=== PATIENT | male | born 1945 | race Caucasian/White ===

== ENCOUNTER 2017-05-19 11:27 | Inpatient (IN) | payer MEDICARE ==
[2017-05-19 11:27] VITALS: BMI 29.9
[2017-05-19] MEDS ORDERED: Sodium Chloride 0.9% 1,000 ML IV STA ×3 (11:44→12:50)
--- NOTE | 2017-05-19 11:52 | ED PDOC ---
HPI: Abdomen Time Seen by Provider: 05/19/17 11:31 Chief Complaint (Nursing): Fever History Per: Patient, Family Onset/Duration Of Symptoms: Days (1) Current Symptoms Are (Timing): Still Present Severity: Moderate Pain Scale Rating Of: 3 Location Of Pain/Discomfort: RLQ, LLQ, Suprapubic Quality Of Discomfort: Cramping Associated Symptoms: Fever, Nausea, Other (Bloody stool). denies: Vomiting, Diarrhea Exacerbating Factors: None Alleviating Factors: None Additional Complaint(s): Crampy lower abd pain assoc with fever and bloody stool since last night. Nausea but no vomiting. No urinary sxs. Past Medical History Vital Signs: Last Vital Signs Temp 98.8 F 05/19/17 13:18 Pulse 94 H 05/19/17 11:29 Resp 19 05/19/17 11:29 BP 139/62 05/19/17 11:29 Pulse Ox 95 05/19/17 11:52 - Medical History PMH: GERD - Family History Family History: States: Unknown Family Hx - Home Medications Home Medications: Ambulatory Orders Medication Instructions Recorded Nadolol [Corgard] 20 mg PO DAILY 05/19/17 Omeprazole [Omeprazole] 20 mg PO DAILY 05/19/17 - Allergies Allergies/Adverse Reactions: Allergies Allergy/AdvReac Type Severity Reaction Status Date / Time No Known Allergies Allergy Verified 06/02/15 11:45 Review of Systems ROS Statement: Except As Marked, All Systems Reviewed And Found Negative Constitutional: Positive for: Fever Gastrointestinal: Positive for: Nausea, Abdominal Pain, Hematochezia Genitourinary Male: Negative for: Dysuria, Frequency Musculoskeletal: Positive for: Back Pain Physical Exam - Reviewed Nursing Documentation Reviewed: Yes Vital Signs Reviewed: Yes - Physical Exam Appears: Positive for: Non-toxic, No Acute Distress Head Exam: Positive for: ATRAUMATIC, NORMAL INSPECTION, NORMOCEPHALIC Skin: Positive for: Normal Color, Warm, DRY Eye Exam: Positive for: EOMI, Normal appearance, PERRL ENT: Positive for: Normal ENT Inspection Neck: Positive for: Normal, Painless ROM Cardiovascular/Chest: Positive for: Regular Rate, Rhythm Respiratory: Positive for: CNT, Normal Breath Sounds Gastrointestinal/Abdominal: Positive for: Bowel Sounds, Soft, Tenderness (Lower quads bilat.) Back: Positive for: Normal Inspection. Negative for: L CVA Tenderness, R CVA Tenderness Extremity: Positive for: Normal ROM Neurologic/Psych: Positive for: Alert, Oriented. Negative for: Motor/Sensory Deficits - Laboratory Results Result Diagrams: 05/19/17 12:30 05/19/17 12:30 - ECG O2 Sat by Pulse Oximetry: 95 Disposition - Clinical Impression Clinical Impression: Sepsis, Cholecystitis - Patient ED Disposition Is Patient to be Admitted: Yes - Disposition Disposition Time: 15:27 Condition: FAIR - Pt Status Changed To: Hospital Disposition Of: Inpatient - Admit Certification Admit to Inpatient:: After my assessment, the patient will require hospitalization for at least two midnights. This is because of the severity of symptoms shown, intensity of services needed, and/or the medical risk in this patient being treated as an outpatient. - POA Present On Arrival: None
[2017-05-19 12:26] LABS: VENOUS BLOOD GAS BASE EXCESS -0.8 mmol/L (0.0-2.0); VENOUS BLOOD GAS PCO2 27 mmHg (40-60); VENOUS BLOOD GAS PO2 37 mm/Hg (30-55)
--- NOTE | 2017-05-19 12:33 | RAD ---
HISTORY: fever COMPARISON: None available. TECHNIQUE: Chest PA and lateral FINDINGS: Examination limited by habitus. LUNGS: Mild pulmonary venous congestion. Please note that chest x-ray has limited sensitivity for the detection of pulmonary masses. PLEURA: No significant pleural effusion identified. No definite pneumothorax . CARDIOVASCULAR: Mild cardiomegaly. OSSEOUS STRUCTURES: Mild degenerative changes of the spine. VISUALIZED UPPER ABDOMEN: Unremarkable. OTHER FINDINGS: None. IMPRESSION: Mild pulmonary venous congestion. Cardiomegaly.
[2017-05-19] MEDS ORDERED: Piperacillin/Tazobact 3.375 GM in Sodium Chloride 0.9% 100 ML IVPB STA (12:50)
[2017-05-19] MEDS ORDERED: Piperacillin/Tazobact 3.375 gm Inj IVPB ONE (13:07)
[2017-05-19 13:41] LABS: ALB/GLOB RATIO 0.8 (1.0-2.1); ALBUMIN 3.3 g/dL (3.5-5.0); ALT/SGPT 80 U/L (21-72); AST/SGOT 108 U/L (17-59); BLOOD UREA NITROGEN 15 mg/dl (9-20); CALCIUM 8.4 mg/dL (8.4-10.2); GFR AFRICAN-AMERICAN > 60; GFR NON-AFRICAN AMERICAN > 60
[2017-05-19 13:45] LABS: INR 1.7 (0.9-1.2); PARTIAL THROMBOPLASTIN TIME 42.5 Seconds (25.6-37.1); PROTHROMBIN TIME 19.5 Seconds (9.8-13.1)
[2017-05-19 13:48] LABS: BASO % 0.1 % (0.0-2.0); EOS % 0.1 % (0.0-4.0); HEMOGLOBIN 13.3 g/dL (12.0-18.0); LYMPH # 0.3 K/uL (1.0-4.3); LYMPH % 4.4 % (20.0-40.0); MEAN CORPUSCULAR HEMOGLOBIN 33.2 pg (27.0-31.0); MEAN CORPUSCULAR HGB CONC 34.9 g/dL (33.0-37.0); MONO # 0.1 K/uL (0.0-0.8); MONO % 1.3 % (0.0-10.0); NEUT # 6.5 K/uL (1.8-7.0); NEUT % 94.1 % (50.0-75.0); NRBC % 0.1 % (0.0-0.0); PLATELET COUNT 31 K/uL (130-400); RBC 4.01 Mil/uL (4.40-5.90); RED CELL DISTRIBUTION WIDTH 14.4 % (11.5-14.5); WHITE BLOOD COUNT 6.9 K/uL (4.8-10.8)
[2017-05-19] MEDS ORDERED: Iohexol 300 100 ML IJ ONE (13:55)
[2017-05-19] MEDS ORDERED: Sodium Chloride 0.9% 50 ML IV ONE (13:55)
[2017-05-19] MEDS ORDERED: Vancomycin 1 g Inj ONE (14:26)
--- NOTE | 2017-05-19 15:17 | CT ---
PROCEDURE: CT Abdomen and Pelvis with contrast HISTORY: lower abd pain, fever, gi bleed COMPARISON: None available. TECHNIQUE: Contrast dose: 95 mL Omnipaque 300 Radiation dose: Total exam DLP = 1056.89 mGy-cm. This CT exam was performed using one or more of the following dose reduction techniques: Automated exposure control, adjustment of the mA and/or kV according to patient size, and/or use of iterative reconstruction technique. FINDINGS: LOWER THORAX: Mild bibasilar atelectasis. No visible pleural effusion or pneumothorax. Small hiatal hernia. Sub cm paraesophageal lymph nodes measuring up to 9 mm in short axis. LIVER: Trace perihepatic ascites. Hepatomegaly. Nodular hepatic contour. Heterogeneous hepatic parenchyma. Numerous too small to characterize hepatic hypodensities measuring up to 7 mm at the hepatic dome. GALLBLADDER AND BILE DUCTS: Gallbladder wall thickening/pericholecystic edema. Punctate calcified gallstone. PANCREAS: Unremarkable. SPLEEN: Splenomegaly. ADRENALS: Unremarkable. KIDNEYS AND URETERS: The kidneys enhance symmetrically. No hydronephrosis or obstructing calculus identified. VASCULATURE: Numerous varices, left mid to lower abdomen. No aortic aneurysm. BOWEL: Stomach is nondistended. Lack of oral contrast limits evaluation for bowel pathology. Bowel loops appear within normal limits of caliber without evidence of obstruction. Diverticulosis without CT evidence of acute diverticulitis. APPENDIX: The appendix appears within normal limits of caliber. No secondary signs of acute appendicitis. PERITONEUM: No significant free fluid. No definite free air. LYMPH NODES: No bulky adenopathy identified. BLADDER: Under distended urinary bladder appears otherwise grossly unremarkable. REPRODUCTIVE: Heterogeneous enlarged prostate gland measures approximately 5.6 x 6.9 cm. BONES: Degenerative changes. Osseous demineralization. Suspect Schmorl's nodes involving the inferior endplate of L4. Vacuum disc phenomenon at L5-S1. OTHER FINDINGS: Small fat containing umbilical hernia. IMPRESSION: Cirrhotic appearing liver; nodular hepatic contour. Heterogeneous hepatic parenchyma. Numerous too small to characterize hepatic hypodensities measuring up to 7 mm, hepatic dome. Trace perihepatic ascites. Gallbladder wall thickening/pericholecystic edema. Punctate calcified gallstone. Splenomegaly. Numerous varices in the left mid to lower abdomen. Diverticulosis without CT evidence of acute diverticulitis. Heterogeneous enlarged prostate gland. Recommend correlation with PSA. Additional findings as above.
[2017-05-19 15:28] LABS: BASO % 0.2 % (0.0-2.0); EOS % 0.1 % (0.0-4.0); HEMOGLOBIN 11.7 g/dL (12.0-18.0); LYMPH # 0.3 K/uL (1.0-4.3); LYMPH % 5.6 % (20.0-40.0); MEAN CELL VOLUME 94.5 fl (80.0-94.0); MEAN CORPUSCULAR HEMOGLOBIN 33.6 pg (27.0-31.0); MEAN CORPUSCULAR HGB CONC 35.5 g/dL (33.0-37.0); MEAN PLATELET VOLUME 9.9 fl (7.2-11.7); MONO # 0.2 K/uL (0.0-0.8); MONO % 3.7 % (0.0-10.0); NEUT # 5.4 K/uL (1.8-7.0); NEUT % 90.4 % (50.0-75.0); NRBC % 0.2 % (0.0-0.0); RBC 3.49 Mil/uL (4.40-5.90); RED CELL DISTRIBUTION WIDTH 13.9 % (11.5-14.5)
[2017-05-19 15:35] LABS: BANDS 6 % (0-2); EOSINOPHIL 1 % (0-7); LYMPHOCYTE 5 % (20-50); MONOCYTE 2 % (0-10); NEUTROPHIL 86 % (42-75); TOTAL CELLS COUNTED 100
[2017-05-19 15:36] LABS: ANISOCYTOSIS SLIGHT; PLATELET ESTIMATE MARKEDLY DECREASED (NORMAL)
[2017-05-19 15:37] LABS: LARGE PLATELETS PRESENT; SMUDGE CELLS PRESENT; TEARDROP CELLS SLIGHT
[2017-05-19 15:39] LABS: VENOUS BLOOD GAS BASE EXCESS -4.4 mmol/L (0.0-2.0); VENOUS BLOOD GAS PCO2 24 mmHg (40-60); VENOUS BLOOD GAS PO2 68 mm/Hg (30-55); VENOUS BLOOD PH 7.47 (7.32-7.43)
[2017-05-19] MEDS ORDERED: metroNIDAZOLE 500mg/100ml NS 100 ML IVPB SCH (18:15)
--- NOTE | 2017-05-19 18:24 | CP.CCUPN ---
CCU Subjective - Physician Review Subjective (Free Text): Consult for ICU admission and management: Discussed with ER MD: 72M with h/o HTN , low platelets, admitted for lower abdominal pain and rectal bleeding, found to have cholecystitis with non-obstructing cholelithiasis, low platelets 31K down to 14K after IVF hydration, elevated lactate levels, and fever to 102.5F. CTAP also revealed diverticulosis. Patient denies any n/v, chest discomfort, sob, sweats, palpitations, focal weakness, distention, diarrhea, or dysuria. In ER, recd 2 liters NSS, given empiric abx coverage with Zosyn/ Vanco, and 2 pack units of platelets have been ordered. ROS: as above, no other pertinent negs or positives on 10+ system review. Allergies: NKDA Home Meds: Corgard, Omeprazole Other PMSFH: denies tobacco or ETOH use, no known family history of early deaths from cardiac disease, [place]. All other nursing and physician documentation reviewed and no further pertinent info noted relevant to current problems. CCU Objective - Vital Signs / Intake & Output Vital Signs (Last 4 hours): Vital Signs Pulse Ox 05/19/17 15:27 95 - Physical Exam Head: Positive for: Normocephalic Pupils: Positive for: PERRL Extroacular Muscles: Positive for: EOMI Conjunctiva: Positive for: Normal Ears: Positive for: Normal Mouth: Positive for: Moist Mucous Membranes Pharnyx: Negative for: ERYTHEMA, EXUDATE Neck: Positive for: Normal Range of Motion, Meningeal Signs. Negative for: JVD Respiratory/Chest: Positive for: Clear to Auscultation. Negative for: Accessory Muscle Use, Wheezes Cardiovascular: Positive for: Regular Rate and Rhythm, Normal S1, S2. Negative for: Murmurs, Rub Abdomen: Positive for: Tenderness, Distention, Normal Bowel Sounds. Negative for: Peritoneal Signs, Rebound, Guarding Lower Extremity: Positive for: NORMAL PULSES. Negative for: CALF TENDERNESS, Cyanosis Neurological: Positive for: GCS=15, CN II-XII Intact, Motor Func Grossly Intact Skin: Positive for: Warm. Negative for: Rashes Psychiatric: Positive for: Alert, Oriented x 3 - Medications Active Medications: Active Medications Generic Name Dose Route Start Last Admin Trade Name Freq PRN Reason Stop Dose Admin Acetaminophen 650 mg 05/19/17 18:19 Tylenol 325mg Tab PO Q6 PRN Fever >100.4 F Sodium Chloride 1,000 mls @ 100 mls/hr 05/19/17 11:44 05/19/17 12:01 Sodium Chloride 0.9% IV 05/19/17 21:43 100 mls/hr .Q10H STA Administration Ciprofloxacin 400 mg in 200 mls @ 200 mls/hr 05/19/17 18:13 Cipro 400mg/200ml Dsw IVPB Q12 BETH Metronidazole 100 mls @ 100 mls/hr 05/19/17 18:15 Flagyl 500mg/100ml Ns IVPB Q8 BETH Piperacillin Sod/Tazobactam 100 mls @ 100 mls/hr 05/19/17 22:00 Sod 3.375 gm/ Sodium Chloride IVPB Q6 BETH Pantoprazole Sodium 40 mg 05/19/17 18:16 Protonix Inj IVP DAILY BETH - Patient Studies Lab Studies: Lab Studies 05/19/17 05/19/17 Range/Units 17:00 15:30 Fibrinogen 202 (200-400) mg/dl pO2 68 H (30-55) mm/Hg VBG pH 7.47 H (7.32-7.43) VBG pCO2 24 L (40-60) mmHg VBG HCO3 21.4 mmol/L VBG Total CO2 18.2 L (22-28) mmol/L VBG O2 Sat (Calc) 99.3 H (40-65) % VBG Base Excess -4.4 L (0.0-2.0) mmol/L VBG Potassium 3.7 (3.6-5.2) mmol/L Sodium 134.0 (132-148) mmol/L Chloride 106.0 (98-107) mmol/L Glucose 107 (75-110) mg/dL Lactate 3.1 H (0.7-2.1) mmol/L FiO2 21.0 % Venous Blood Potassium 3.7 (3.6-5.2) mmol/L Laboratory Results - last 24 hr 05/19/17 05/19/17 15:30 17:00 Fibrinogen 202 pO2 68 H VBG pH 7.47 H VBG pCO2 24 L VBG HCO3 21.4 VBG Total CO2 18.2 L VBG O2 Sat (Calc) 99.3 H VBG Base Excess -4.4 L VBG Potassium 3.7 Sodium 134.0 Chloride 106.0 Glucose 107 Lactate 3.1 H FiO2 21.0 Venous Blood Potassium 3.7 Radiology Interpretations (Free Text): (my interp) no gross consolidation, minimal pulm vascular congestive interstitial changes. EKG/Cardiology Interpretations (Free Text): (my interp) sinus 97/min, CRBBB. Review of Systems - Review of Systems Review of Systems: See As Above. Critical Care Progress Note - Extremities/Vascular Does the Patient have a Central Venous Catheter?: No Does the Patient need a Central Venous Catheter?: No Does the Patient have a Mcnally Catheter?: No Does the Patient need a Mcnally Catheter?: No - Prophylaxis GI Prophylaxis GI: PPI - Prophylaxis DVT Prophylaxis DVT: SCDs Assessment/Plan - Assessment and Plan (Free Text) Assessment: MAJOR PROBLEMS: 1. Acute Qian with non-obstructing Cholelithiasis 2. Severe Sepsis 2 #1 3. LGI bleed 4. Acute on Chronic Thrombocytopenia, r/o Sepsis induced v. DIC v. other autoimmune destruction 5. Hepatosplenomegaly, 2 Portal HTN ?? 6. Acute on Chronic Disease Anemia 7. Coagulopathy, etiology 2 hepatic insuff, r/o DIC 8. HTN by history Plan: PLAN: 1. Dutta-cultures, empiric abx coverage started, consider broadening with double Gram neg coverage. 2. IVF hydration, check ECHO 3. Repeat serial Lactates till normalized. 4. Platelet transfusion, check peripheral smear, serial Fib levels. 5. Vit K, FFP if Hgb drops further. 6. GI eval for appropriateness of endoscopy. 7. Gen Surg / IR eval.
[2017-05-19] MEDS: Ciprofloxacin 400mg/200ml D5W 400 MG/200 ML BAG IVPB SCH (18:28)
[2017-05-19 19:37] LABS: VENOUS BLOOD GAS BASE EXCESS -7.1 mmol/L (0.0-2.0); VENOUS BLOOD GAS PCO2 25 mmHg (40-60); VENOUS BLOOD GAS PO2 68 mm/Hg (30-55); VENOUS BLOOD PH 7.41 (7.32-7.43)
[2017-05-19] MEDS ORDERED: Phytonadione 10 mg/ml Inj (Adult) IVPB ONE (19:38)
[2017-05-19] MEDS ORDERED: metroNIDAZOLE 500mg/100ml NS 100 ML IVPB ONE (19:55)
--- NOTE | 2017-05-19 20:09 | CP.PCM.CON ---
History of Present Illness - History of Present Illness History of Present Illness: 72 year old male with a history of liver cirrhosis, chronic thrombocytopenia s/ p bone marrow biopsy by Dr. Hammond, admitted with pelvic pain and rectal bleeding, found to have acute cholecystitis. The patient reports to increasing abdominal pain and subjective fevers which brought him to the ER. In the ER he was found to have a plt count of 31,000 which has nadired at 14,000 after IVF bolus. 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 A CT A/P revealed cirrhotic appearing liver, splenomegaly, and varices. Peripheral smear: Toxic granulation of WBC, mild anisopoikilocytosis, no increase in schistocytes, giant platelets, decreased platelet count, no platelet clumping. Past medical history: liver cirrhosis Past surgical history: None Family history: Denies hematologic and oncologic problems Social history: Former alcohol abuse. Allergies: NKA Review of systems: All remaining review of systems including HEENT, cardiovascular, respiratory, gastrointestinal, genitourinary, musculoskeletal, dermatologic, neurologic, and psychiatric are negative unless mentioned in the HPI. Past Patient History - Infectious Disease Hx of Infectious Diseases: None - Past Social History Smoking Status: Never Smoked - CARDIAC Hx Hypertension: Yes - PSYCHIATRIC Hx Substance Use: No Meds Allergies/Adverse Reactions: Allergies Allergy/AdvReac Type Severity Reaction Status Date / Time No Known Allergies Allergy Verified 06/02/15 11:45 - Medications Medications: Current Medications Acetaminophen (Tylenol 325mg Tab) 650 mg PO Q6 PRN PRN Reason: Fever >100.4 F Sodium Chloride (Sodium Chloride 0.9%) 1,000 mls @ 100 mls/hr IV .Q10H STA Stop: 05/19/17 21:43 Last Admin: 05/19/17 12:01 Dose: 100 mls/hr Ciprofloxacin (Cipro 400mg/200ml Dsw) 400 mg in 200 mls @ 200 mls/hr IVPB Q12 BETH Last Admin: 05/19/17 18:28 Dose: 200 mls/hr Metronidazole (Flagyl 500mg/100ml Ns) 100 mls @ 100 mls/hr IVPB Q8 BETH Last Admin: 05/19/17 19:56 Dose: 100 mls/hr Piperacillin Sod/Tazobactam Sod (Zosyn 3.375 Gm Iv Premix) 3.375 gm in 50 mls @ 50 mls/hr IVPB Q6 [facility] Phytonadione 20 mg/ Sodium (Chloride) 52 mls @ 104 mls/hr IV ONCE ONE Stop: 05/19/17 20:59 Pantoprazole Sodium (Protonix Inj) 40 mg IVP DAILY [facility] Last Admin: 05/19/17 18:29 Dose: 40 mg Physical Exam - Head Exam Head Exam: ATRAUMATIC - Eye Exam Eye Exam: Normal appearance - ENT Exam ENT Exam: Mucous Membranes Dry - Respiratory Exam Respiratory Exam: NORMAL BREATHING PATTERN - Cardiovascular Exam Cardiovascular Exam: +S1, +S2 - GI/Abdominal Exam GI & Abdominal Exam: Normal Bowel Sounds - Extremities Exam Extremities exam: Positive for: normal inspection - Neurological Exam Neurological exam: Oriented x3 - Psychiatric Exam Psychiatric exam: Normal Affect, Normal Mood - Skin Skin Exam: Warm Results - Vital Signs Recent Vital Signs: Last Vital Signs Temp 98.3 F 05/19/17 18:38 Pulse 77 05/19/17 18:38 Resp 22 05/19/17 18:38 BP 89/49 L 05/19/17 18:38 Pulse Ox 99 05/19/17 18:38 - Labs Result Diagrams: 05/19/17 15:22 05/19/17 12:30 Labs: Laboratory Results - last 24 hr 05/19/17 05/19/17 05/19/17 15:30 17:00 17:50 Fibrinogen 202 pO2 68 H VBG pH 7.47 H VBG pCO2 24 L VBG HCO3 21.4 VBG Total CO2 18.2 L VBG O2 Sat (Calc) 99.3 H VBG Base Excess -4.4 L VBG Potassium 3.7 Sodium 134.0 Chloride 106.0 Glucose 107 Lactate 3.1 H FiO2 21.0 Venous Blood Potassium 3.7 Blood Type O POSITIVE Antibody Screen Negative BBK History Checked No verified bt 05/19/17 19:30 Fibrinogen pO2 68 H VBG pH 7.41 VBG pCO2 25 L VBG HCO3 19.3 VBG Total CO2 16.6 L VBG O2 Sat (Calc) 99.0 H VBG Base Excess -7.1 L VBG Potassium 3.7 Sodium 134.0 Chloride 108.0 H Glucose 135 H Lactate 3.7 H FiO2 21.0 Venous Blood Potassium 3.7 Blood Type Antibody Screen BBK History Checked Assessment & Plan (1) Thrombocytopenia Assessment and Plan: liver cirrhosis causing thrombopoeitin dysregulation, portal hypertension with splenic sequestration agree with transfusion support no evidence of microangiopathic hemolysis by peripheral smear rule out DIC but fibrinogen may be low from liver cirrhosis. Status: Acute (2) Coagulopathy Assessment and Plan: secondary to liver cirrhosis may have nutritional component; s/p vit k and ffp rule out DIC Status: Acute (3) Anemia Assessment and Plan: will check ferritin, retic count, b12, folate, fractionate bilirubin to further characterize rectal bleeding ?varices Thank you for this interesting consult. Status: Acute
--- NOTE | 2017-05-19 20:20 | CP.PCM.CON ---
History of Present Illness - History of Present Illness History of Present Illness: Surgery: Dr. Ring CC: Abd pain HPI: 72M w. pmh of HTN and chronic thrombocytopenia presents to ED w. acute onset abd pain. Pain began at 4AM. Pain is constant, diffuse, and described as stabbing. Pt has never had pain like this before. Pt denies nausea and vomiting. Pt states that he has had diarrhea for 2 days which has been bloody. Blood is noted in the bowl and when he wipes. In ED pt was found to be septic w. gallbladder as likely source. Pt denies BRYANT, but reports feeling dizzy/ blurred vision, he reports fever and chills, no CP/palpitations, no SOB/cough, no hematuria/dysuria. PMH: HTN, thrombocytopenia PSH: none Meds: MAR reviewed NKDA Social: No ETOH/tobacco/drugs Fhx: Non-contributory Review of Systems - Review of Systems All systems: reviewed and no additional remarkable complaints except (HPI) Past Patient History - Infectious Disease Hx of Infectious Diseases: None - Past Social History Smoking Status: Never Smoked - CARDIAC Hx Hypertension: Yes - HEMATOLOGICAL/ONCOLOGICAL Hx Blood Disorders: Yes - PSYCHIATRIC Hx Substance Use: No Meds Allergies/Adverse Reactions: Allergies Allergy/AdvReac Type Severity Reaction Status Date / Time No Known Allergies Allergy Verified 06/02/15 11:45 - Medications Medications: Current Medications Acetaminophen (Tylenol 325mg Tab) 650 mg PO Q6 PRN PRN Reason: Fever >100.4 F Sodium Chloride (Sodium Chloride 0.9%) 1,000 mls @ 100 mls/hr IV .Q10H STA Stop: 05/19/17 21:43 Last Admin: 05/19/17 12:01 Dose: 100 mls/hr Ciprofloxacin (Cipro 400mg/200ml Dsw) 400 mg in 200 mls @ 200 mls/hr IVPB Q12 BETH Last Admin: 05/19/17 18:28 Dose: 200 mls/hr Metronidazole (Flagyl 500mg/100ml Ns) 100 mls @ 100 mls/hr IVPB Q8 [facility] Last Admin: 05/19/17 19:56 Dose: 100 mls/hr Piperacillin Sod/Tazobactam Sod (Zosyn 3.375 Gm Iv Premix) 3.375 gm in 50 mls @ 50 mls/hr IVPB Q6 [facility] Phytonadione 20 mg/ Sodium (Chloride) 52 mls @ 104 mls/hr IV ONCE ONE Stop: 05/19/17 20:59 Pantoprazole Sodium (Protonix Inj) 40 mg IVP DAILY [facility] Last Admin: 05/19/17 18:29 Dose: 40 mg Physical Exam - Constitutional Appears: Non-toxic, No Acute Distress - Head Exam Head Exam: ATRAUMATIC, NORMOCEPHALIC - Eye Exam Eye Exam: EOMI, Scleral icterus - ENT Exam ENT Exam: Mucous Membranes Moist, Normal External Ear Exam - Neck Exam Neck exam: Positive for: Full Rom - Respiratory Exam Respiratory Exam: NORMAL BREATHING PATTERN. absent: Accessory Muscle Use, Respiratory Distress - GI/Abdominal Exam GI & Abdominal Exam: Soft, Tenderness (R mid abdomen). absent: Distended, Firm , Guarding, Rebound, Rigid - Extremities Exam Extremities exam: Negative for: calf tenderness, pedal edema - Neurological Exam Neurological exam: Alert, Oriented x3 Results - Vital Signs Recent Vital Signs: Last Vital Signs Temp 98.3 F 05/19/17 20:03 Pulse 77 05/19/17 20:03 Resp 22 05/19/17 20:03 BP 89/49 L 05/19/17 20:03 Pulse Ox 99 05/19/17 18:38 - Labs Result Diagrams: 05/19/17 15:22 05/19/17 12:30 Labs: Laboratory Results - last 24 hr 05/19/17 05/19/17 05/19/17 15:30 17:00 17:50 Fibrinogen 202 pO2 68 H VBG pH 7.47 H VBG pCO2 24 L VBG HCO3 21.4 VBG Total CO2 18.2 L VBG O2 Sat (Calc) 99.3 H VBG Base Excess -4.4 L VBG Potassium 3.7 Sodium 134.0 Chloride 106.0 Glucose 107 Lactate 3.1 H FiO2 21.0 Venous Blood Potassium 3.7 Blood Type O POSITIVE Antibody Screen Negative BBK History Checked No verified bt 05/19/17 19:30 Fibrinogen pO2 68 H VBG pH 7.41 VBG pCO2 25 L VBG HCO3 19.3 VBG Total CO2 16.6 L VBG O2 Sat (Calc) 99.0 H VBG Base Excess -7.1 L VBG Potassium 3.7 Sodium 134.0 Chloride 108.0 H Glucose 135 H Lactate 3.7 H FiO2 21.0 Venous Blood Potassium 3.7 Blood Type Antibody Screen BBK History Checked - Imaging and Cardiology CT scan - abdomen Status: Image reviewed by me, Report reviewed by me Assessment & Plan - Assessment and Plan (Free Text) Assessment: 72M w. sepsis 2/2 cholecystitis -f/u U/S results -NPO w. ice chips -IVF -abx -pain meds -monitor H/H and plts, transfuse PRN -medically optimize pt for possible surgery -if condition worsens, recommend IR for cholecystostomy tube -d/w attending Zemaitis PGY3
[2017-05-19] MEDS ORDERED: HYDROmorphone 0.5 mg/0.5 ml ISec IVP PRN (20:39)
[2017-05-19] MEDS ORDERED: Sodium Chloride 0.9% 1,000 ML IV SCH (21:00)
[2017-05-19 21:15] LABS: FDP INTERPRETATION NEGATIVE (NEGATIVE)
[2017-05-19] MEDS: Piperacill/Tazo 3.375gm in Dex 3.375 GM/50 ML BAG IVPB SCH (22:24)
[2017-05-20] MEDS: Piperacill/Tazo 3.375gm in Dex 3.375 GM/50 ML BAG IVPB SCH ×4 (03:05→21:17)
[2017-05-20] MEDS: metroNIDAZOLE 500mg/100ml NS 100 ML IVPB SCH ×3 (03:06→19:25)
[2017-05-20] MEDS ORDERED: metroNIDAZOLE 500mg/100ml NS 100 ML IVPB SCH (04:00)
[2017-05-20 05:47] LABS: BASO % 0.2 % (0.0-2.0); EOS % 0.1 % (0.0-4.0); HEMOGLOBIN 12.3 g/dL (12.0-18.0); LYMPH # 0.3 K/uL (1.0-4.3); LYMPH % 4.8 % (20.0-40.0); MEAN CELL VOLUME 96.1 fl (80.0-94.0); MEAN CORPUSCULAR HEMOGLOBIN 33.1 pg (27.0-31.0); MEAN CORPUSCULAR HGB CONC 34.4 g/dL (33.0-37.0); MEAN PLATELET VOLUME 10.2 fl (7.2-11.7); MONO # 0.2 K/uL (0.0-0.8); MONO % 3.5 % (0.0-10.0); NEUT # 5.7 K/uL (1.8-7.0); NEUT % 91.4 % (50.0-75.0); RBC 3.72 Mil/uL (4.40-5.90); RED CELL DISTRIBUTION WIDTH 14.5 % (11.5-14.5); WHITE BLOOD COUNT 6.3 K/uL (4.8-10.8)
[2017-05-20 05:52] LABS: PLATELET COUNT 25 K/uL (130-400)
[2017-05-20 05:53] LABS: ALB/GLOB RATIO 0.8 (1.0-2.1); ALBUMIN 3.1 g/dL (3.5-5.0); ALT/SGPT 65 U/L (21-72); AST/SGOT 76 U/L (17-59); BLOOD UREA NITROGEN 18 mg/dl (9-20); CALCIUM 7.4 mg/dL (8.4-10.2); GFR AFRICAN-AMERICAN > 60; GFR NON-AFRICAN AMERICAN > 60
[2017-05-20 06:08] LABS: INR 1.9 (0.9-1.2); PARTIAL THROMBOPLASTIN TIME 42.8 Seconds (25.6-37.1); PROTHROMBIN TIME 22.1 Seconds (9.8-13.1)
--- NOTE | 2017-05-20 07:58 | CARD ---
APPROVED REPORT EKG Measurement Heart [id number] <Conclusion> Normal sinus rhythm Right bundle branch block Possible Lateral infarct, age undetermined Abnormal ECG
[2017-05-20] MEDS ORDERED: Pneumococcal 23-Valent Vaccine IM ONE (08:00)
[2017-05-20] MEDS: Sodium Chloride 0.9% 1,000 ML IV SCH ×3 (08:15→23:33)
--- NOTE | 2017-05-20 08:30 | CP.PCM.PN ---
Subjective - Date & Time of Evaluation Date of Evaluation: 05/20/17 Time of Evaluation: 08:17 - Subjective Subjective: Surgery for Dr. Ring Pt s&adrian COHEN. Denies F/C/N/V/D/CP/SOB. Pain controlled. Objective - Vital Signs/Intake and Output Vital Signs (last 24 hours): Temp Pulse Resp BP Pulse Ox 100.7 F H 88 31 H 111/48 L 92 L 05/20/17 08:06 05/20/17 08:00 05/20/17 08:00 05/20/17 08:00 05/20/17 08:00 Intake and Output: 05/20/17 05/20/17 06:59 18:59 Intake Total 2173 Output Total 300 Balance 1873 - Medications Medications: Current Medications Acetaminophen (Tylenol 325mg Tab) 650 mg PO Q6 PRN PRN Reason: Fever >100.4 F Last Admin: 05/20/17 08:06 Dose: 650 mg Hydromorphone HCl (Dilaudid) 0.5 mg IVP Q4 PRN PRN Reason: Pain, moderate (4-7) Last Admin: 05/20/17 08:06 Dose: 0.5 mg Ciprofloxacin (Cipro 400mg/200ml Dsw) 400 mg in 200 mls @ 200 mls/hr IVPB Q12 [facility] Last Admin: 05/19/17 18:28 Dose: 200 mls/hr Piperacillin Sod/Tazobactam Sod (Zosyn 3.375 Gm Iv Premix) 3.375 gm in 50 mls @ 50 mls/hr IVPB Q6 [facility] Last Admin: 05/20/17 03:05 Dose: 50 mls/hr Metronidazole (Flagyl 500mg/100ml Ns) 100 mls @ 100 mls/hr IVPB Q8@0400,1200, 2000 [facility] Last Admin: 05/20/17 03:06 Dose: 100 mls/hr Sodium Chloride (Sodium Chloride 0.9%) 1,000 mls @ 125 mls/hr IV .Q8H [facility] Stop: 05/20/17 20:46 Ondansetron HCl (Zofran Inj) 4 mg IVP Q4 PRN PRN Reason: Nausea/Vomiting Pantoprazole Sodium (Protonix Inj) 40 mg IVP DAILY [facility] Last Admin: 05/19/17 18:29 Dose: 40 mg - Labs Labs: 05/20/17 04:30 05/20/17 04:30 PT 22.1 Seconds (9.8-13.1) H 05/20/17 04:30 INR 1.9 (0.9-1.2) H 05/20/17 04:30 APTT 42.8 Seconds (25.6-37.1) H 05/20/17 04:30 - Constitutional Appears: No Acute Distress - Head Exam Head Exam: ATRAUMATIC, NORMAL INSPECTION, NORMOCEPHALIC - Eye Exam Eye Exam: EOMI, Normal appearance, PERRL Pupil Exam: NORMAL ACCOMODATION, PERRL - ENT Exam ENT Exam: Mucous Membranes Moist, Normal Exam - Neck Exam Neck Exam: Full ROM, Normal Inspection. absent: Lymphadenopathy - Respiratory Exam Respiratory Exam: Clear to Ausculation Bilateral, NORMAL BREATHING PATTERN - Cardiovascular Exam Cardiovascular Exam: REGULAR RHYTHM, +S1, +S2. absent: Murmur - GI/Abdominal Exam GI & Abdominal Exam: Soft, Normal Bowel Sounds. absent: Distended, Firm, Guarding, Rigid, Tenderness - Extremities Exam Extremities Exam: Full ROM, Normal Capillary Refill, Normal Inspection - Back Exam Back Exam: NORMAL INSPECTION - Neurological Exam Neurological Exam: Alert, Awake, CN II-XII Intact, Normal Gait, Oriented x3 - Psychiatric Exam Psychiatric exam: Normal Affect, Normal Mood - Skin Skin Exam: Dry, Intact, Normal Color, Warm Assessment and Plan - Assessment and Plan (Free Text) Assessment: 72M w. sepsis 2/2 cholecystitis Platelet improved: 25k today , tbili 3.9 -f/u U/S results -NPO w. ice chips -IVF -abx -pain meds -monitor H/H and plts, transfuse PRN -medically optimize pt for possible surgery -if condition worsens, recommend IR for cholecystostomy tube -d/w attending
--- NOTE | 2017-05-20 09:34 | CP.CCUPN ---
CCU Subjective - Physician Review Events Since Last Encounter (Free Text): 05/20/17 The patient was Seen and examined by me at the bedside during ICU round, Medical records reviewed and Management issues were discussed and formulated with the house staff. 72 Years old Male with PMHx of HTN, GERD and chronic thrombocytopenia s/p bone marrow biopsy Who presents to the Emergency department with complaint of Crampy lower abdominal pain associated with fever and bloody stool x1 day, On Exam he had bilateral Lower quads Tenderness, and bilateral CVA Tenderness and fever to 102.5F. Labs significant for low platelets 31K, no leukocytosis with elevated LFTs and lactate levels, CTAP also revealed cholecystitis with non-obstructing cholelithiasis and diverticulosis. Patient denies any N/V, diarrhea, chest pain, SOB or dysuria. In ER, he received empiric abx coverage with Zosyn/ Vanco Patient received 2U FFP and 2 platelets He is doing better today Improved ABD pain with Dilaudid 0.5 mg IVP and Tylenol 650 mg PO Low grade fever Initially hypotensive, now BP better Urine C/S positive for GNR Good saturation on 2L NC Comfortable, No sign of respiratory distress. No sign of active bleeding Patient awake, does not follows basic commands Started on clear liquid diet per surgery. CCU Objective - Vital Signs / Intake & Output Vital Signs (Last 4 hours): Vital Signs Temp Pulse Resp BP Pulse Ox 05/20/17 09:00 84 22 102/54 L 94 L 05/20/17 08:06 100.7 F H 05/20/17 08:00 100.7 F H 88 31 H 111/48 L 92 L 05/20/17 06:30 99.9 F H 86 32 H 115/59 L 91 L Intake and Output (Last 8hrs): Intake & Output 05/19/17 05/20/17 05/20/17 22:59 06:59 14:59 Intake Total 623 1550 200 Output Total 300 Balance 623 1250 200 Weight 199 lb Intake: IV 200 800 200 Intake, Piggyback 200 150 Oral 0 0 Blood Product 223 600 Output: Urine 300 Urine, Voided 300 Emesis 0 Other: # Bowel Movements 0 - Physical Exam Head: Positive for: Normocephalic Pupils: Positive for: PERRL Extroacular Muscles: Positive for: EOMI Conjunctiva: Positive for: Normal Ears: Positive for: Normal Mouth: Positive for: Moist Mucous Membranes Pharnyx: Negative for: ERYTHEMA, EXUDATE Neck: Positive for: Normal Range of Motion, Meningeal Signs. Negative for: JVD Respiratory/Chest: Positive for: Clear to Auscultation. Negative for: Accessory Muscle Use, Wheezes Cardiovascular: Positive for: Regular Rate and Rhythm, Normal S1, S2. Negative for: Murmurs, Rub Abdomen: Positive for: Tenderness, Distention, Normal Bowel Sounds. Negative for: Peritoneal Signs, Rebound, Guarding Lower Extremity: Positive for: NORMAL PULSES. Negative for: CALF TENDERNESS, Cyanosis Neurological: Positive for: GCS=15, CN II-XII Intact, Motor Func Grossly Intact Skin: Positive for: Warm. Negative for: Rashes Psychiatric: Positive for: Alert, Oriented x 3 - Medications Active Medications: Active Medications Generic Name Dose Route Start Last Admin Trade Name Freq PRN Reason Stop Dose Admin Acetaminophen 650 mg 05/19/17 18:19 05/20/17 08:06 Tylenol 325mg Tab PO 650 mg Q6 PRN Administration Fever >100.4 F Hydromorphone HCl 0.5 mg 05/19/17 20:39 05/20/17 08:06 Dilaudid IVP 0.5 mg Q4 PRN Administration Pain, moderate (4-7) Ciprofloxacin 400 mg in 200 mls @ 200 mls/hr 05/19/17 18:13 05/19/17 18:28 Cipro 400mg/200ml Dsw IVPB 200 mls/hr Q12 BETH Administration Piperacillin Sod/Tazobactam Sod 3.375 gm in 50 mls @ 50 mls/hr 05/19/17 22:00 05/20/17 03:05 Zosyn 3.375 Gm Iv Premix IVPB 50 mls/hr Q6 BETH Administration Metronidazole 100 mls @ 100 mls/hr 05/19/17 23:41 05/20/17 03:06 Flagyl 500mg/100ml Ns IVPB 100 mls/hr Q8@0400,1200,2000 BETH Administration Sodium Chloride 1,000 mls @ 125 mls/hr 05/20/17 07:55 05/20/17 08:15 Sodium Chloride 0.9% IV 05/20/17 20:46 125 mls/hr .Q8H BETH Administration Ondansetron HCl 4 mg 05/19/17 20:40 Zofran Inj IVP Q4 PRN Nausea/Vomiting Pantoprazole Sodium 40 mg 05/19/17 18:16 05/20/17 08:16 Protonix Inj IVP 40 mg DAILY BETH Administration - Patient Studies Lab Studies: Lab Studies 05/20/17 05/20/17 05/20/17 Range/Units 04:30 04:30 04:30 WBC (4.8-10.8) K/uL RBC (4.40-5.90) Mil/uL Hgb (12.0-18.0) g/dL Hct (35.0-51.0) % MCV (80.0-94.0) fl MCH (27.0-31.0) pg MCHC (33.0-37.0) g/dL RDW (11.5-14.5) % Plt Count (130-400) K/uL MPV (7.2-11.7) fl Neut % (Auto) (50.0-75.0) % Lymph % (Auto) (20.0-40.0) % Dixon % (Auto) (0.0-10.0) % Eos % (Auto) (0.0-4.0) % Baso % (Auto) (0.0-2.0) % Neut # (1.8-7.0) K/uL Lymph # (1.0-4.3) K/uL Dixon # (0.0-0.8) K/uL Eos # (0.0-0.7) K/uL Baso # (0.0-0.2) K/uL PT 22.1 H (9.8-13.1) Seconds INR 1.9 H (0.9-1.2) APTT 42.8 H (25.6-37.1) Seconds Fibrinogen 287 (200-400) mg/dl Fibrin Degrad Products (NEGATIVE) pO2 (30-55) mm/Hg VBG pH (7.32-7.43) VBG pCO2 (40-60) mmHg VBG HCO3 mmol/L VBG Total CO2 (22-28) mmol/L VBG O2 Sat (Calc) (40-65) % VBG Base Excess (0.0-2.0) mmol/L VBG Potassium (3.6-5.2) mmol/L Sodium 139 (132-148) mmol/L Chloride 111 H (98-107) mmol/L Glucose (75-110) mg/dL Lactate (0.7-2.1) mmol/L FiO2 % Potassium 4.1 (3.6-5.0) MMOL/L Carbon Dioxide 17 L (22-30) mmol/L Anion Gap 15 (10-20) BUN 18 (9-20) mg/dl Creatinine 1.1 (0.8-1.5) mg/dL Est GFR ( Amer) > 60 Est GFR (Non-Af Amer) > 60 Random Glucose 84 (75-110) mg/dL Lactic Acid 3.6 H (0.7-2.1) MMOL/L Calcium 7.4 L (8.4-10.2) mg/dL Total Bilirubin 3.9 H (0.2-1.3) mg/dl AST 76 H D (17-59) U/L ALT 65 (21-72) U/L Alkaline Phosphatase 112 (38-126) U/L Total Protein 7.0 (6.3-8.2) G/DL Albumin 3.1 L (3.5-5.0) g/dL Globulin 3.9 (2.2-3.9) gm/dL Albumin/Globulin Ratio 0.8 L (1.0-2.1) Venous Blood Potassium (3.6-5.2) mmol/L Blood Type Antibody Screen BBK History Checked 05/20/17 05/19/17 05/19/17 Range/Units 04:30 20:20 19:30 WBC 6.3 (4.8-10.8) K/uL RBC 3.72 L (4.40-5.90) Mil/uL Hgb 12.3 (12.0-18.0) g/dL Hct 35.7 (35.0-51.0) % MCV 96.1 H (80.0-94.0) fl MCH 33.1 H (27.0-31.0) pg MCHC 34.4 (33.0-37.0) g/dL RDW 14.5 (11.5-14.5) % Plt Count 25 L* D (130-400) K/uL MPV 10.2 (7.2-11.7) fl Neut % (Auto) 91.4 H (50.0-75.0) % Lymph % (Auto) 4.8 L (20.0-40.0) % Dixon % (Auto) 3.5 (0.0-10.0) % Eos % (Auto) 0.1 (0.0-4.0) % Baso % (Auto) 0.2 (0.0-2.0) % Neut # 5.7 (1.8-7.0) K/uL Lymph # 0.3 L (1.0-4.3) K/uL Dixon # 0.2 (0.0-0.8) K/uL Eos # 0.0 (0.0-0.7) K/uL Baso # 0.0 (0.0-0.2) K/uL PT (9.8-13.1) Seconds INR (0.9-1.2) APTT (25.6-37.1) Seconds Fibrinogen (200-400) mg/dl Fibrin Degrad Products Negative (NEGATIVE) pO2 68 H (30-55) mm/Hg VBG pH 7.41 (7.32-7.43) VBG pCO2 25 L (40-60) mmHg VBG HCO3 19.3 mmol/L VBG Total CO2 16.6 L (22-28) mmol/L VBG O2 Sat (Calc) 99.0 H (40-65) % VBG Base Excess -7.1 L (0.0-2.0) mmol/L VBG Potassium 3.7 (3.6-5.2) mmol/L Sodium 134.0 (132-148) mmol/L Chloride 108.0 H (98-107) mmol/L Glucose 135 H (75-110) mg/dL Lactate 3.7 H (0.7-2.1) mmol/L FiO2 21.0 % Potassium (3.6-5.0) MMOL/L Carbon Dioxide (22-30) mmol/L Anion Gap (10-20) BUN (9-20) mg/dl Creatinine (0.8-1.5) mg/dL Est GFR ( Amer) Est GFR (Non-Af Amer) Random Glucose (75-110) mg/dL Lactic Acid (0.7-2.1) MMOL/L Calcium (8.4-10.2) mg/dL Total Bilirubin (0.2-1.3) mg/dl AST (17-59) U/L ALT (21-72) U/L Alkaline Phosphatase (38-126) U/L Total Protein (6.3-8.2) G/DL Albumin (3.5-5.0) g/dL Globulin (2.2-3.9) gm/dL Albumin/Globulin Ratio (1.0-2.1) Venous Blood Potassium 3.7 (3.6-5.2) mmol/L Blood Type Antibody Screen BBK History Checked 05/19/17 05/19/17 05/19/17 Range/Units 17:50 17:00 15:30 WBC (4.8-10.8) K/uL RBC (4.40-5.90) Mil/uL Hgb (12.0-18.0) g/dL Hct (35.0-51.0) % MCV (80.0-94.0) fl MCH (27.0-31.0) pg MCHC (33.0-37.0) g/dL RDW (11.5-14.5) % Plt Count (130-400) K/uL MPV (7.2-11.7) fl Neut % (Auto) (50.0-75.0) % Lymph % (Auto) (20.0-40.0) % Dixon % (Auto) (0.0-10.0) % Eos % (Auto) (0.0-4.0) % Baso % (Auto) (0.0-2.0) % Neut # (1.8-7.0) K/uL Lymph # (1.0-4.3) K/uL Dixon # (0.0-0.8) K/uL Eos # (0.0-0.7) K/uL Baso # (0.0-0.2) K/uL PT (9.8-13.1) Seconds INR (0.9-1.2) APTT (25.6-37.1) Seconds Fibrinogen 202 (200-400) mg/dl Fibrin Degrad Products (NEGATIVE) pO2 68 H (30-55) mm/Hg VBG pH 7.47 H (7.32-7.43) VBG pCO2 24 L (40-60) mmHg VBG HCO3 21.4 mmol/L VBG Total CO2 18.2 L (22-28) mmol/L VBG O2 Sat (Calc) 99.3 H (40-65) % VBG Base Excess -4.4 L (0.0-2.0) mmol/L VBG Potassium 3.7 (3.6-5.2) mmol/L Sodium 134.0 (132-148) mmol/L Chloride 106.0 (98-107) mmol/L Glucose 107 (75-110) mg/dL Lactate 3.1 H (0.7-2.1) mmol/L FiO2 21.0 % Potassium (3.6-5.0) MMOL/L Carbon Dioxide (22-30) mmol/L Anion Gap (10-20) BUN (9-20) mg/dl Creatinine (0.8-1.5) mg/dL Est GFR ( Amer) Est GFR (Non-Af Amer) Random Glucose (75-110) mg/dL Lactic Acid (0.7-2.1) MMOL/L Calcium (8.4-10.2) mg/dL Total Bilirubin (0.2-1.3) mg/dl AST (17-59) U/L ALT (21-72) U/L Alkaline Phosphatase (38-126) U/L Total Protein (6.3-8.2) G/DL Albumin (3.5-5.0) g/dL Globulin (2.2-3.9) gm/dL Albumin/Globulin Ratio (1.0-2.1) Venous Blood Potassium 3.7 (3.6-5.2) mmol/L Blood Type O POSITIVE Antibody Screen Negative BBK History Checked No verified bt Laboratory Results - last 24 hr 05/19/17 05/19/17 05/19/17 15:30 17:00 17:50 WBC RBC Hgb Hct MCV MCH MCHC RDW Plt Count MPV Neut % (Auto) Lymph % (Auto) Dixon % (Auto) Eos % (Auto) Baso % (Auto) Neut # Lymph # Dixon # Eos # Baso # PT INR APTT Fibrinogen 202 Fibrin Degrad Products pO2 68 H VBG pH 7.47 H VBG pCO2 24 L VBG HCO3 21.4 VBG Total CO2 18.2 L VBG O2 Sat (Calc) 99.3 H VBG Base Excess -4.4 L VBG Potassium 3.7 Sodium 134.0 Chloride 106.0 Glucose 107 Lactate 3.1 H FiO2 21.0 Potassium Carbon Dioxide Anion Gap BUN Creatinine Est GFR ( Amer) Est GFR (Non-Af Amer) Random Glucose Lactic Acid Calcium Total Bilirubin AST ALT Alkaline Phosphatase Total Protein Albumin Globulin Albumin/Globulin Ratio Venous Blood Potassium 3.7 Blood Type O POSITIVE Antibody Screen Negative BBK History Checked No verified bt 05/19/17 05/19/17 05/20/17 19:30 20:20 04:30 WBC 6.3 RBC 3.72 L Hgb 12.3 Hct 35.7 MCV 96.1 H MCH 33.1 H MCHC 34.4 RDW 14.5 Plt Count 25 L* D MPV 10.2 Neut % (Auto) 91.4 H Lymph % (Auto) 4.8 L Dixon % (Auto) 3.5 Eos % (Auto) 0.1 Baso % (Auto) 0.2 Neut # 5.7 Lymph # 0.3 L Dixon # 0.2 Eos # 0.0 Baso # 0.0 PT INR APTT Fibrinogen Fibrin Degrad Products Negative pO2 68 H VBG pH 7.41 VBG pCO2 25 L VBG HCO3 19.3 VBG Total CO2 16.6 L VBG O2 Sat (Calc) 99.0 H VBG Base Excess -7.1 L VBG Potassium 3.7 Sodium 134.0 Chloride 108.0 H Glucose 135 H Lactate 3.7 H FiO2 21.0 Potassium Carbon Dioxide Anion Gap BUN Creatinine Est GFR ( Amer) Est GFR (Non-Af Amer) Random Glucose Lactic Acid Calcium Total Bilirubin AST ALT Alkaline Phosphatase Total Protein Albumin Globulin Albumin/Globulin Ratio Venous Blood Potassium 3.7 Blood Type Antibody Screen BBK History Checked 05/20/17 05/20/17 05/20/17 04:30 04:30 04:30 WBC RBC Hgb Hct MCV MCH MCHC RDW Plt Count MPV Neut % (Auto) Lymph % (Auto) Dixon % (Auto) Eos % (Auto) Baso % (Auto) Neut # Lymph # Dixon # Eos # Baso # PT 22.1 H INR 1.9 H APTT 42.8 H Fibrinogen 287 Fibrin Degrad Products pO2 VBG pH VBG pCO2 VBG HCO3 VBG Total CO2 VBG O2 Sat (Calc) VBG Base Excess VBG Potassium Sodium 139 Chloride 111 H Glucose Lactate FiO2 Potassium 4.1 Carbon Dioxide 17 L Anion Gap 15 BUN 18 Creatinine 1.1 Est GFR ( Amer) > 60 Est GFR (Non-Af Amer) > 60 Random Glucose 84 Lactic Acid 3.6 H Calcium 7.4 L Total Bilirubin 3.9 H AST 76 H D ALT 65 Alkaline Phosphatase 112 Total Protein 7.0 Albumin 3.1 L Globulin 3.9 Albumin/Globulin Ratio 0.8 L Venous Blood Potassium Blood Type Antibody Screen BBK History Checked EKG/Cardiology Studies: Cardiology / EKG Studies 05/20/17 EKG [ELECTROCARDIOGRAM] Stat Comment: Mode Of Transportation: PORTABLE Reason For Exam: chest pain Critical Care Progress Note - Extremities/Vascular Does the Patient have a Central Venous Catheter?: No Does the Patient need a Central Venous Catheter?: No Does the Patient have a Mcnally Catheter?: No Does the Patient need a Mcnally Catheter?: No - Prophylaxis GI Prophylaxis GI: PPI - Prophylaxis DVT Prophylaxis DVT: Not Indicated (chronic thrombocytopenia) - Nutrition Nutrition: Nutrition Category Date Time Status NPO Diet [DIET] Diets 05/19/17 Dinner Active Assessment/Plan (1) Severe sepsis Current Visit: Yes Status: Acute (2) UTI (urinary tract infection) Current Visit: Yes Status: Acute (3) Cholecystitis Current Visit: Yes Status: Acute (4) Coagulopathy Current Visit: Yes Status: Acute (5) Thrombocytopenia Current Visit: Yes Status: Acute (6) Anemia Current Visit: Yes Status: Acute
--- NOTE | 2017-05-20 10:39 | RAD ---
HISTORY: f/u pulm vasc congestion COMPARISON: 05/19/2017 FINDINGS: LUNGS: No infiltrate. PLEURA: No significant pleural effusion identified, no pneumothorax apparent. CARDIOVASCULAR: Congestive change is again evident. Normal heart size. OSSEOUS STRUCTURES: No significant abnormalities. VISUALIZED UPPER ABDOMEN: Normal. OTHER FINDINGS: None. IMPRESSION: Pulmonary vascular congestive change, similar to prior examination. No pleural effusion. Otherwise unremarkable.
[2017-05-20] MEDS: Ciprofloxacin 400mg/200ml D5W 400 MG/200 ML BAG IVPB SCH ×2 (10:40→20:17)
[2017-05-20 10:54] LABS: BANDS 9 % (0-2); EOSINOPHIL 1 % (0-7); LYMPHOCYTE 3 % (20-50); MONOCYTE 5 % (0-10); NEUTROPHIL 79 % (42-75); PLATELET ESTIMATE MARKEDLY DECREASED (NORMAL); REACTIVE LYMPHOCYTES 3 % (0-0); TOTAL CELLS COUNTED 100
[2017-05-20 10:55] LABS: ANISOCYTOSIS SLIGHT; OVALOCYTES SLIGHT; TEARDROP CELLS SLIGHT
[2017-05-20 10:56] LABS: TOXIC GRANULATION PRESENT
[2017-05-20 11:44] LABS: GAMMA GLUTAMYL TRANSPEPTIDASE 166 U/L (8-78)
[2017-05-20] MEDS ORDERED: Alum-Mag Hydrox-Simethicone Susp (30 mL) PO ONE (12:30)
[2017-05-20 15:40] LABS: FDP QUANTITY <10 ug/mL (<10)
--- NOTE | 2017-05-20 23:43 | CARD ---
APPROVED REPORT EKG Measurement Heart [id number] <Conclusion> Normal sinus rhythm Right bundle branch block Abnormal ECG
--- NOTE | 2017-05-21 01:52 | HP ---
DATE:05/19/2017 CHIEF COMPLAINT: Feeling sick and abdominal pain. HISTORY OF PRESENT ILLNESS: This is a 72-year-old male, known case of hypertension, thrombocytopenia, and questionable liver problem, who was having abdominal pain, and also the patient started having bright red blood from rectum, so the patient was brought to the emergency room and was admitted for further management. REVIEW OF SYSTEMS: Positive for generalized malaise, weakness, chills, feverish feeling, abdominal pain, and rectal bleeding. Review of systems was negative for headache, dizziness, syncope, loss of consciousness, chest pain, shortness of breath, nausea, vomiting, diarrhea, or constipation. No new joint or extremity pain. Review of system of all other organ system is unremarkable. PAST MEDICAL HISTORY: Significant for hypertension, liver problem, and stomach problem. PAST SURGICAL HISTORY: Unremarkable. PERSONAL HISTORY: The patient is currently nonsmoker, nondrinker. No substance abuse. MEDICATIONS: The patient is on multiple medications, which is as per the reconciliation sheet, which was reviewed. ALLERGIES: The patient is not allergic to any medications. FAMILY HISTORY: Noncontributory. PHYSICAL EXAMINATION: GENERAL: Well built, well nourished 72-year-old male, in no acute distress. VITAL SIGNS: Temperature 99.9, pulse 86, respirations 28, blood pressure 115/59. HEENT: Pupils are reactive to light. NECK: No JVD. No thyromegaly. No lymphadenopathy. No nystagmus. Normocephalic, atraumatic scalp. CARDIOPULMONARY: S1 and S2. Normal rate and rhythm. No significant murmur, gallop, or rub is heard. LUNGS: Showed good bilateral air exchange. No rales or rhonchi. ABDOMEN: Shows mild right upper quadrant tenderness. No sign of acute abdomen. No guarding, no rigidity, no rebound. Bowel sounds are plus. EXTREMITIES: No edema, no calf swelling, no tenderness *------*. NEUROLOGIC: The patient is alert, awake, oriented x3. There is no sign of any acute gross focal, motor, or sensory neurological deficit. DIAGNOSTIC DATA: Available diagnostic data reviewed. WBC of 6.9, hemoglobin 13.3, hematocrit 38.1, platelets 31. PT 19.5, and INR 1.7. Venous blood test: PH 7.57, PCO2 of 57, PO2 of 37. Sodium 134, potassium 4.2, chloride 106, bicarb 19, BUN 15, creatinine 1.0. SMA-12 shows AST of 108, ALT of 80, albumin is 3.3. CAT scan of the abdomen shows cirrhotic liver, gallbladder wall thickening with pericholecystic edema, diverticulosis, and enlarged prostate gland. Chest x-ray shows mild pulmonary congestion. EKG shows right bundle branch block, difficult to evaluate for any acute ST-T changes. Surgical consult and hematology/oncology consult noted and appreciated. ADMITTING IMPRESSION: 1. Severe sepsis. 2. Acute cholecystitis. 3. Thrombocytopenia. 4. Hypertension. 5. Dyspepsia. 6. Cirrhosis of liver. 7. Diverticulosis. 8. Right bundle branch block. PLAN: Treatment plan discussed with the patient. Arthur Ruiz MD
[2017-05-21] MEDS: Piperacill/Tazo 3.375gm in Dex 3.375 GM/50 ML BAG IVPB SCH ×4 (03:10→22:00)
[2017-05-21] MEDS: metroNIDAZOLE 500mg/100ml NS 100 ML IVPB SCH ×4 (03:10→19:51)
[2017-05-21 05:14] LABS: HEMOGLOBIN 11.3 g/dL (12.0-18.0); MEAN CELL VOLUME 96.2 fl (80.0-94.0); MEAN CORPUSCULAR HEMOGLOBIN 32.6 pg (27.0-31.0); MEAN CORPUSCULAR HGB CONC 33.9 g/dL (33.0-37.0); RBC 3.47 Mil/uL (4.40-5.90); RED CELL DISTRIBUTION WIDTH 14.6 % (11.5-14.5); WHITE BLOOD COUNT 4.5 K/uL (4.8-10.8)
[2017-05-21 05:27] LABS: BLOOD UREA NITROGEN 19 mg/dl (9-20); CALCIUM 7.6 mg/dL (8.4-10.2); GFR AFRICAN-AMERICAN > 60; GFR NON-AFRICAN AMERICAN > 60
[2017-05-21] MEDS: Ciprofloxacin 400mg/200ml D5W 400 MG/200 ML BAG IVPB SCH ×3 (08:36→21:04)
[2017-05-21] MEDS: Pantoprazole 40 mg EC Tab PO SCH (08:38)
[2017-05-21 09:20] LABS: ALB/GLOB RATIO 0.7 (1.0-2.1); ALBUMIN 2.6 g/dL (3.5-5.0); ALT/SGPT 58 U/L (21-72); AST/SGOT 76 U/L (17-59); BILIRUBIN,DIRECT 1.2 mg/ml (0.0-0.4)
--- NOTE | 2017-05-21 10:37 | CP.PCM.PN ---
Subjective - Date & Time of Evaluation Date of Evaluation: 05/21/17 Time of Evaluation: 10:36 - Subjective Subjective: Surgery: Dr. Ring Pt seen and examined. Per nursing no acute events overnight. Pt has mild abd pain in RUQ/RLQ. He is tolerating CLD. No N/V. He states that he would like to eat more. Per nursing, no recent bloody BM. Objective - Vital Signs/Intake and Output Vital Signs (last 24 hours): Temp Pulse Resp BP Pulse Ox 99.8 F H 72 22 143/97 H 95 05/21/17 08:00 05/21/17 10:00 05/21/17 10:00 05/21/17 10:00 05/21/17 10:00 Intake and Output: 05/21/17 05/21/17 06:59 18:59 Intake Total 2200 475 Output Total 800 200 Balance 1400 275 - Medications Medications: Current Medications Acetaminophen (Tylenol 325mg Tab) 650 mg PO Q6 PRN PRN Reason: Fever >100.4 F Last Admin: 05/20/17 23:32 Dose: 650 mg Hydromorphone HCl (Dilaudid) 0.5 mg IVP Q4 PRN PRN Reason: Pain, moderate (4-7) Last Admin: 05/20/17 08:06 Dose: 0.5 mg Ciprofloxacin (Cipro 400mg/200ml Dsw) 400 mg in 200 mls @ 200 mls/hr IVPB Q12 [facility] Last Admin: 05/21/17 08:38 Dose: 200 mls/hr Piperacillin Sod/Tazobactam Sod (Zosyn 3.375 Gm Iv Premix) 3.375 gm in 50 mls @ 50 mls/hr IVPB Q6 [facility] Last Admin: 05/21/17 10:07 Dose: 50 mls/hr Metronidazole (Flagyl 500mg/100ml Ns) 100 mls @ 100 mls/hr IVPB Q8@0400,1200, 2000 [facility] Last Admin: 05/21/17 03:10 Dose: 100 mls/hr Ondansetron HCl (Zofran Inj) 4 mg IVP Q4 PRN PRN Reason: Nausea/Vomiting Pantoprazole Sodium (Protonix Ec Tab) 40 mg PO DAILY [facility] Last Admin: 05/21/17 08:38 Dose: 40 mg - Labs Labs: 05/21/17 04:25 05/21/17 04:25 PT 22.1 Seconds (9.8-13.1) H 05/20/17 04:30 INR 1.9 (0.9-1.2) H 05/20/17 04:30 APTT 42.8 Seconds (25.6-37.1) H 05/20/17 04:30 - Constitutional Appears: Non-toxic, No Acute Distress - Head Exam Head Exam: ATRAUMATIC, NORMOCEPHALIC - Eye Exam Eye Exam: EOMI. absent: Scleral icterus - ENT Exam ENT Exam: Mucous Membranes Moist - Neck Exam Neck Exam: Full ROM - Respiratory Exam Respiratory Exam: NORMAL BREATHING PATTERN. absent: Accessory Muscle Use, Respiratory Distress - GI/Abdominal Exam GI & Abdominal Exam: Soft, Tenderness (mild RUQ). absent: Distended, Firm, Guarding, Rigid, Rebound - Extremities Exam Extremities Exam: absent: Calf Tenderness, Pedal Edema - Neurological Exam Neurological Exam: Alert, Awake, Oriented x3 Assessment and Plan - Assessment and Plan (Free Text) Assessment: 72M w. cholecystitis -f/u U/S report -LFTs trending down -thrombocytopenia persists, monitor and transfuse PRN -pt is a poor candidate for surgery at this time -will continue w. conservative management, abx -if condition deteriorates, recommend cholecystostomy tube -will advance diet to low fat -d/w attending [facility] PGY3
--- NOTE | 2017-05-21 12:26 | CP.CCUPN ---
CCU Subjective - Physician Review Events Since Last Encounter (Free Text): 05/21/17 11:56 The patient was Seen and examined by me at the bedside during ICU round, Medical records reviewed and Management issues were discussed and formulated with the house staff. 72 Years old Male with PMHx of HTN, GERD and chronic thrombocytopenia s/p bone marrow biopsy Who presents to the Emergency department with complaint of Crampy lower abdominal pain associated with fever and bloody stool x1 day, Patient denies any N/V, diarrhea, chest pain, SOB or dysuria. On Exam he had bilateral Lower quads Tenderness, and bilateral CVA Tenderness and fever to 102.5F. Labs significant for low platelets 31K, no leukocytosis with elevated LFTs and lactate levels, CTAP also revealed cholecystitis with non-obstructing cholelithiasis and diverticulosis. In ER, he received empiric abx coverage with Zosyn/ Vanco Admitted to the ICU for management of severe sepsis patient evaluated by hematology Patient received 2U FFP and 2 platelets No sign of active bleeding. Patient is doing better today, awake, follows commands Improved ABD pain with Dilaudid 0.5 mg IVP and Tylenol 650 mg PO Low grade fever Initially hypotensive, now BP better Comfortable, No sign of respiratory distress. Good saturation on 2L NC Urine and Blood C/S positive for GNR Patient on IV Cipro, Flagyl and Zosyn Morning Labs Plat count down to 18, no signs of active bleed Started on clear liquid diet per surgery yesterday and upgraded to regular cosistancy diet today, tolerated well, no N/V. OOB, Ambulating CCU Objective - Vital Signs / Intake & Output Vital Signs (Last 4 hours): Vital Signs Temp Pulse Resp BP Pulse Ox 05/21/17 10:00 72 22 143/97 H 95 05/21/17 08:00 99.8 F H 70 23 139/73 95 Intake and Output (Last 8hrs): Intake & Output 05/20/17 05/21/17 05/21/17 22:59 06:59 14:59 Intake Total 1575 1325 475 Output Total 500 500 200 Balance 1075 825 275 Intake: IV 875 1125 375 Intake, Piggyback 550 150 100 Oral 150 50 Output: Urine 500 500 200 Urine, Voided 500 500 200 Other: # Voids Urine, Voided 1 1 1 # Bowel Movements 1 - Physical Exam Head: Positive for: Normocephalic Pupils: Positive for: PERRL Extroacular Muscles: Positive for: EOMI Conjunctiva: Positive for: Normal Ears: Positive for: Normal Mouth: Positive for: Moist Mucous Membranes Pharnyx: Negative for: ERYTHEMA, EXUDATE Neck: Positive for: Normal Range of Motion, Meningeal Signs. Negative for: JVD Respiratory/Chest: Positive for: Clear to Auscultation. Negative for: Accessory Muscle Use, Wheezes Cardiovascular: Positive for: Regular Rate and Rhythm, Normal S1, S2. Negative for: Murmurs, Rub Abdomen: Positive for: Tenderness, Distention, Normal Bowel Sounds. Negative for: Peritoneal Signs, Rebound, Guarding Lower Extremity: Positive for: NORMAL PULSES. Negative for: CALF TENDERNESS, Cyanosis Neurological: Positive for: GCS=15, CN II-XII Intact, Motor Func Grossly Intact Skin: Positive for: Warm. Negative for: Rashes Psychiatric: Positive for: Alert, Oriented x 3 - Medications Active Medications: Active Medications Generic Name Dose Route Start Last Admin Trade Name Freq PRN Reason Stop Dose Admin Acetaminophen 650 mg 05/19/17 18:19 05/20/17 23:32 Tylenol 325mg Tab PO 650 mg Q6 PRN Administration Fever >100.4 F Hydromorphone HCl 0.5 mg 05/19/17 20:39 05/20/17 08:06 Dilaudid IVP 0.5 mg Q4 PRN Administration Pain, moderate (4-7) Ciprofloxacin 400 mg in 200 mls @ 200 mls/hr 05/19/17 18:13 05/21/17 08:38 Cipro 400mg/200ml Dsw IVPB 200 mls/hr Q12 BETH Administration Piperacillin Sod/Tazobactam Sod 3.375 gm in 50 mls @ 50 mls/hr 05/19/17 22:00 05/21/17 10:07 Zosyn 3.375 Gm Iv Premix IVPB 50 mls/hr Q6 BETH Administration Metronidazole 100 mls @ 100 mls/hr 05/19/17 23:41 05/21/17 03:10 Flagyl 500mg/100ml Ns IVPB 100 mls/hr Q8@0400,1200,2000 BETH Administration Ondansetron HCl 4 mg 05/19/17 20:40 Zofran Inj IVP Q4 PRN Nausea/Vomiting Pantoprazole Sodium 40 mg 05/21/17 09:00 05/21/17 08:38 Protonix Ec Tab PO 40 mg DAILY BETH Administration - Patient Studies Lab Studies: Lab Studies 05/21/17 05/21/17 05/19/17 Range/Units 04:25 04:25 20:20 WBC 4.5 L (4.8-10.8) K/uL RBC 3.47 L (4.40-5.90) Mil/uL Hgb 11.3 L (12.0-18.0) g/dL Hct 33.4 L (35.0-51.0) % MCV 96.2 H (80.0-94.0) fl MCH 32.6 H (27.0-31.0) pg MCHC 33.9 (33.0-37.0) g/dL RDW 14.6 H (11.5-14.5) % Plt Count 18 L* D (130-400) K/uL Fibrin Degrad Prod, Qt <10 (<10) ug/mL Sodium 137 (132-148) mmol/l Potassium 3.8 (3.6-5.0) MMOL/L Chloride 112 H (98-107) mmol/L Carbon Dioxide 19 L (22-30) mmol/L Anion Gap 10 (10-20) BUN 19 (9-20) mg/dl Creatinine 0.9 (0.8-1.5) mg/dL Est GFR ( Amer) > 60 Est GFR (Non-Af Amer) > 60 Random Glucose 97 (75-110) mg/dL Calcium 7.6 L (8.4-10.2) mg/dL Total Bilirubin 2.5 H (0.2-1.3) mg/dl Direct Bilirubin 1.2 H (0.0-0.4) mg/ml AST 76 H (17-59) U/L ALT 58 (21-72) U/L Alkaline Phosphatase 77 (38-126) U/L Total Protein 6.2 L (6.3-8.2) G/DL Albumin 2.6 L (3.5-5.0) g/dL Globulin 3.6 (2.2-3.9) gm/dL Albumin/Globulin Ratio 0.7 L (1.0-2.1) Laboratory Results - last 24 hr 05/19/17 05/21/17 05/21/17 20:20 04:25 04:25 WBC 4.5 L RBC 3.47 L Hgb 11.3 L Hct 33.4 L MCV 96.2 H MCH 32.6 H MCHC 33.9 RDW 14.6 H Plt Count 18 L* D Fibrin Degrad Prod, Qt <10 Sodium 137 Potassium 3.8 Chloride 112 H Carbon Dioxide 19 L Anion Gap 10 BUN 19 Creatinine 0.9 Est GFR ( Amer) > 60 Est GFR (Non-Af Amer) > 60 Random Glucose 97 Calcium 7.6 L Total Bilirubin 2.5 H Direct Bilirubin 1.2 H AST 76 H ALT 58 Alkaline Phosphatase 77 Total Protein 6.2 L Albumin 2.6 L Globulin 3.6 Albumin/Globulin Ratio 0.7 L Critical Care Progress Note - Nutrition Nutrition: Nutrition Category Date Time Status Heart Healthy Diet [DIET] Diets 05/21/17 Breakfast Active Assessment/Plan (1) Severe sepsis Current Visit: Yes Status: Acute (2) UTI (urinary tract infection) Current Visit: Yes Status: Acute (3) Cholecystitis Current Visit: Yes Status: Acute (4) Coagulopathy Current Visit: Yes Status: Acute (5) Thrombocytopenia Current Visit: Yes Status: Acute (6) Anemia Current Visit: Yes Status: Acute
--- NOTE | 2017-05-21 13:29 | US ---
HISTORY: RUQ pain. Cholecystitis, sepsis and thrombocytopenia COMPARISON: 05/19/2017 CT abdomen and pelvis TECHNIQUE: Sonographic evaluation of the right upper quadrant of the abdomen. FINDINGS: LIVER: Measures 18.1 cm in length. Heterogeneous echogenicity of the liver parenchyma. Nodular contour consistent with cirrhosis. Trace perihepatic fluid. Echogenic focus in the right hepatic lobe 1.4 x 2 cm. Smaller echogenic focus 0.6 x 1.2 cm left hepatic lobe. Findings are indeterminate. Echogenic nature suggests benign etiology. Even in retrospect these findings were not seen on the prior CT scan Trace perihepatic ascites GALLBLADDER: No gallstones identified. Gallbladder polyps apparent. The largest measures 4 x 10 mm. COMMON BILE DUCT: Measures 4.3 mm. No stones. No dilatation. PANCREAS: Obscured by overlying bowel gas. Non diagnostic assessment of The pancreas. RIGHT KIDNEY: Measures 4.3 x 11.1 cm in length. Normal echogenicity. No calculus, mass, or hydronephrosis. AORTA: No aneurysmal dilatation. IVC: Unremarkable. OTHER FINDINGS: Incompletely visualize right pleural effusion IMPRESSION: Cirrhotic liver. Small echogenic masses of uncertain etiology. Hemangiomas should be considered but the studies not happen pneumonic 4 benign hepatic masses. Mild gallbladder wall thickening common no gallstones identified. Small gallbladder polyps.
--- NOTE | 2017-05-21 16:07 | CP.PCM.PN ---
Subjective - Date & Time of Evaluation Date of Evaluation: 05/21/17 Time of Evaluation: 12:00 - Subjective Subjective: Appears comfortable Objective - Vital Signs/Intake and Output Vital Signs (last 24 hours): Temp Pulse Resp BP Pulse Ox 99.8 F H 70 25 H 126/63 96 05/21/17 12:00 05/21/17 14:00 05/21/17 14:00 05/21/17 14:00 05/21/17 14:00 Intake and Output: 05/21/17 05/21/17 06:59 18:59 Intake Total 2200 900 Output Total 800 200 Balance 1400 700 - Medications Medications: Current Medications Acetaminophen (Tylenol 325mg Tab) 650 mg PO Q6 PRN PRN Reason: Fever >100.4 F Last Admin: 05/20/17 23:32 Dose: 650 mg Hydromorphone HCl (Dilaudid) 0.5 mg IVP Q4 PRN PRN Reason: Pain, moderate (4-7) Last Admin: 05/20/17 08:06 Dose: 0.5 mg Ciprofloxacin (Cipro 400mg/200ml Dsw) 400 mg in 200 mls @ 200 mls/hr IVPB Q12 [facility] Last Admin: 05/21/17 08:38 Dose: 200 mls/hr Piperacillin Sod/Tazobactam Sod (Zosyn 3.375 Gm Iv Premix) 3.375 gm in 50 mls @ 50 mls/hr IVPB Q6 [facility] Last Admin: 05/21/17 10:07 Dose: 50 mls/hr Metronidazole (Flagyl 500mg/100ml Ns) 100 mls @ 100 mls/hr IVPB Q8@0400,1200, 2000 [facility] Last Admin: 05/21/17 12:28 Dose: 100 mls/hr Ondansetron HCl (Zofran Inj) 4 mg IVP Q4 PRN PRN Reason: Nausea/Vomiting Pantoprazole Sodium (Protonix Ec Tab) 40 mg PO DAILY [facility] Last Admin: 05/21/17 08:38 Dose: 40 mg - Labs Labs: 05/21/17 04:25 05/21/17 04:25 PT 22.1 Seconds (9.8-13.1) H 05/20/17 04:30 INR 1.9 (0.9-1.2) H 05/20/17 04:30 APTT 42.8 Seconds (25.6-37.1) H 05/20/17 04:30 - Head Exam Head Exam: ATRAUMATIC - Eye Exam Eye Exam: Normal appearance - ENT Exam ENT Exam: Mucous Membranes Dry - Respiratory Exam Respiratory Exam: NORMAL BREATHING PATTERN - Cardiovascular Exam Cardiovascular Exam: +S1, +S2 - GI/Abdominal Exam GI & Abdominal Exam: Normal Bowel Sounds - Extremities Exam Extremities Exam: Normal Inspection Assessment and Plan (1) Thrombocytopenia Assessment & Plan: liver disease, splenic sequestration transfusion support if plt < 10,000 or active bleeding Status: Acute (2) Coagulopathy Assessment & Plan: liver disease s/p FFP and vit k Status: Acute (3) Anemia Assessment & Plan: mild H/H fairly stable will check iron, b12, folate stores Status: Acute
[2017-05-21] MEDS ORDERED: Albuterol-Ipratrop 3 mg / 0.5 (3 ml) UD INH STA (17:00)
--- NOTE | 2017-05-21 17:17 | CARD ---
APPROVED REPORT EXAM: Two-dimensional and M-mode echocardiogram with Doppler and color Doppler. Other Information Quality : AverageRhythm : NSR Technically limited study due to body habitus. INDICATION Chest Pain 2D DIMENSIONS IVSd1.07 (0.7-1.1cm)LVDd4.89 (3.9-5.9cm) LVOT Diameter2.62 (1.8-2.4cm)PWd0.88 (0.7-1.1cm) IVSs1.28 (0.8-1.2cm)LVDs3.31 (2.5-4.0cm) FS (%) 32.3 %PWs1.24 (0.8-1.2cm) LVEF (%)50.0 (>50%) M-Mode DIMENSIONS Left Atrium (MM)3.09 (2.5-4.0cm)IVSd0.88 (0.7-1.1cm) Aortic Root3.47 (2.2-3.7cm)LVDd6.26 (4.0-5.6cm) Aortic Cusp Exc.2.12 (1.5-2.0cm)PWd0.82 (0.7-1.1cm) IVSs1.29 cmFS (%) 35 % LVDs4.06 (2.0-3.8cm)PWs1.47 cm Mitral Valve MV E Mxmxbvhc73.3cm/sMV DECEL [id number] A Fpagtrgd89.0cm/s MV HSF22scQ/A ratio1.6MVA (PHT)4.07cm2 TDI Lateral E' Peak V15.16cm/sMedial E' Peak V13.53cm/sE/Lateral E'6.4 E/Medial E'7.2 Pulmonary Valve PV Peak Rbukxvsz525.0cm/s Tricuspid Valve TR Peak Abslxihs684ur/sRAP [id number] Peak Gr.24mmHg [id number] LEFT VENTRICLE The left ventricle is normal size. There is borderline concentric left ventricular hypertrophy. Left ventricle is borderline. There is normal LV segmental wall motion. Transmitral Doppler flow pattern is Grade II-pseudonormal filling dynamics. RIGHT VENTRICLE The right ventricle is normal size. There is normal right ventricular wall thickness. The right ventricular systolic function is normal. ATRIA The left atrium size is normal. The right atrium size is normal. AORTIC VALVE The aortic valve is not well visualized. No aortic regurgitation is present. There is no aortic valvular stenosis. MITRAL VALVE The mitral valve is normal in structure and function. There is no mitral valve stenosis. There is no mitral valve regurgitation noted. TRICUSPID VALVE The tricuspid valve is normal in structure There is mild pulmonary hypertension. PULMONIC VALVE The pulmonary valve is normal in structure and function. There is no pulmonic valvular regurgitation. GREAT VESSELS The aortic root is normal in size. The IVC was not visualized. PERICARDIAL EFFUSION There is a trace loculated anterior pericardial effusion. <Conclusion> The left ventricle is normal size. There is borderline concentric left ventricular hypertrophy. Left ventricle is borderline. There is normal LV segmental wall motion. There is mild pulmonary hypertension.
[2017-05-22] MEDS: metroNIDAZOLE 500mg/100ml NS 100 ML IVPB SCH ×3 (04:00→20:49)
[2017-05-22] MEDS: Piperacill/Tazo 3.375gm in Dex 3.375 GM/50 ML BAG IVPB SCH ×2 (04:34→10:12)
[2017-05-22 05:31] LABS: HEMOGLOBIN 12.3 g/dL (12.0-18.0); MEAN CELL VOLUME 94.4 fl (80.0-94.0); RBC 3.72 Mil/uL (4.40-5.90); RED CELL DISTRIBUTION WIDTH 14.4 % (11.5-14.5); WHITE BLOOD COUNT 6.2 K/uL (4.8-10.8)
[2017-05-22 05:43] LABS: ALB/GLOB RATIO 0.7 (1.0-2.1); ALBUMIN 2.7 g/dL (3.5-5.0); ALT/SGPT 65 U/L (21-72); AST/SGOT 96 U/L (17-59); BLOOD UREA NITROGEN 14 mg/dl (9-20); CALCIUM 7.9 mg/dL (8.4-10.2); GFR AFRICAN-AMERICAN > 60; GFR NON-AFRICAN AMERICAN > 60
[2017-05-22] MEDS: Pantoprazole 40 mg EC Tab PO SCH (08:32)
[2017-05-22] MEDS: Ciprofloxacin 400mg/200ml D5W 400 MG/200 ML BAG IVPB SCH ×2 (08:32→22:17)
[2017-05-22 14:37] LABS: TOTAL PSA 0.9 ng/mL (<=4.0)
--- NOTE | 2017-05-22 15:18 | CP.PCM.PN ---
Subjective - Date & Time of Evaluation Date of Evaluation: 05/22/17 Time of Evaluation: 15:17 - Subjective Subjective: Surgery for Jhonathan Torres Pt s&e. VICKI. Denies F/C/N/V/D?CP/SOB. Mild low abd pain. Denied bloody BM. Objective - Vital Signs/Intake and Output Vital Signs (last 24 hours): Temp Pulse Resp BP Pulse Ox 98.2 F 74 25 H 117/65 96 05/22/17 12:00 05/22/17 12:00 05/22/17 12:00 05/22/17 12:00 05/22/17 12:00 Intake and Output: 05/22/17 05/22/17 06:59 18:59 Intake Total 720 110 Output Total 930 300 Balance -210 -190 - Medications Medications: Current Medications Acetaminophen (Tylenol 325mg Tab) 650 mg PO Q6 PRN PRN Reason: Fever >100.4 F Last Admin: 05/20/17 23:32 Dose: 650 mg Hydromorphone HCl (Dilaudid) 0.5 mg IVP Q4 PRN PRN Reason: Pain, moderate (4-7) Last Admin: 05/20/17 08:06 Dose: 0.5 mg Ciprofloxacin (Cipro 400mg/200ml Dsw) 400 mg in 200 mls @ 200 mls/hr IVPB Q12 [facility] Last Admin: 05/22/17 08:32 Dose: 200 mls/hr Metronidazole (Flagyl 500mg/100ml Ns) 100 mls @ 100 mls/hr IVPB Q8@0400,1200, 2000 [facility] Last Admin: 05/22/17 13:15 Dose: 100 mls/hr Ondansetron HCl (Zofran Inj) 4 mg IVP Q4 PRN PRN Reason: Nausea/Vomiting Pantoprazole Sodium (Protonix Ec Tab) 40 mg PO DAILY [facility] Last Admin: 05/22/17 08:32 Dose: 40 mg - Labs Labs: 05/22/17 04:30 05/22/17 04:30 PT 22.1 Seconds (9.8-13.1) H 05/20/17 04:30 INR 1.9 (0.9-1.2) H 05/20/17 04:30 APTT 42.8 Seconds (25.6-37.1) H 05/20/17 04:30 - Constitutional Appears: No Acute Distress - Head Exam Head Exam: ATRAUMATIC, NORMAL INSPECTION, NORMOCEPHALIC - Eye Exam Eye Exam: EOMI, Normal appearance, PERRL Pupil Exam: NORMAL ACCOMODATION, PERRL - ENT Exam ENT Exam: Mucous Membranes Moist, Normal Exam - Neck Exam Neck Exam: Full ROM, Normal Inspection. absent: Lymphadenopathy - Respiratory Exam Respiratory Exam: Clear to Ausculation Bilateral, NORMAL BREATHING PATTERN - Cardiovascular Exam Cardiovascular Exam: REGULAR RHYTHM, +S1, +S2. absent: Murmur - GI/Abdominal Exam GI & Abdominal Exam: Distended, Soft, Tenderness, Normal Bowel Sounds. absent: Firm, Guarding, Rigid Additional comments: Low abd TTP. - Extremities Exam Extremities Exam: Full ROM, Normal Inspection - Back Exam Back Exam: NORMAL INSPECTION - Neurological Exam Neurological Exam: Alert, Awake, CN II-XII Intact, Normal Gait, Oriented x3 - Psychiatric Exam Psychiatric exam: Normal Affect, Normal Mood - Skin Skin Exam: Dry, Intact, Normal Color, Warm Assessment and Plan - Assessment and Plan (Free Text) Assessment: 72M w. cholecystitis U/S report: thicken GB wall. Small GB polyps -LFTs trending down -thrombocytopenia persists, monitor and transfuse PRN -pt is a poor candidate for surgery at this time -will continue w. conservative management, abx -if condition deteriorates, recommend cholecystostomy tube -Diet as tolerated -d/w attending
[2017-05-23] MEDS: metroNIDAZOLE 500mg/100ml NS 100 ML IVPB SCH ×3 (03:48→20:57)
[2017-05-23 07:34] LABS: BASO % 0.1 % (0.0-2.0); EOS % 0.2 % (0.0-4.0); HEMOGLOBIN 12.5 g/dL (12.0-18.0); LYMPH # 0.4 K/uL (1.0-4.3); LYMPH % 7.5 % (20.0-40.0); MEAN CORPUSCULAR HEMOGLOBIN 32.3 pg (27.0-31.0); MEAN CORPUSCULAR HGB CONC 34.7 g/dL (33.0-37.0); MEAN PLATELET VOLUME 10.5 fl (7.2-11.7); MONO # 0.5 K/uL (0.0-0.8); NEUT # 4.3 K/uL (1.8-7.0); NEUT % 82.2 % (50.0-75.0); NRBC % 0.1 % (0.0-0.0); RBC 3.86 Mil/uL (4.40-5.90); RED CELL DISTRIBUTION WIDTH 14.4 % (11.5-14.5); WHITE BLOOD COUNT 5.2 K/uL (4.8-10.8)
[2017-05-23 07:47] LABS: PLATELET COUNT 25 K/uL (130-400)
[2017-05-23 07:50] LABS: ALB/GLOB RATIO 0.7 (1.0-2.1); ALBUMIN 2.7 g/dL (3.5-5.0); ALT/SGPT 70 U/L (21-72); AST/SGOT 97 U/L (17-59); BLOOD UREA NITROGEN 12 mg/dl (9-20); CALCIUM 7.9 mg/dL (8.4-10.2); GFR AFRICAN-AMERICAN > 60; GFR NON-AFRICAN AMERICAN > 60
[2017-05-23] MEDS: Ciprofloxacin 400mg/200ml D5W 400 MG/200 ML BAG IVPB SCH (09:16)
[2017-05-23] MEDS: Pantoprazole 40 mg EC Tab PO SCH (09:17)
[2017-05-23] MEDS ORDERED: Albuterol-Ipratrop 3 mg / 0.5 (3 ml) UD INH STA (09:43)
[2017-05-23] MEDS ORDERED: Potassium Chloride 20 mEq ER Tab PO ONE (10:36)
[2017-05-23 11:12] LABS: BANDS 1 % (0-2); LYMPHOCYTE 5 % (20-50); MONOCYTE 6 % (0-10); NEUTROPHIL 88 % (42-75); PLATELET ESTIMATE MARKEDLY DECREASED (NORMAL); TOTAL CELLS COUNTED 100
[2017-05-23 11:15] LABS: TOXIC GRANULATION PRESENT
--- NOTE | 2017-05-23 12:07 | CP.PCM.CON ---
History of Present Illness - History of Present Illness History of Present Illness: Infectious Disease Consultation Note- asked to see this patient at the request of for bacteremia. HPI- history obtained from patient and medical records as well. Pt. is a 72 year old male with h/o gastritis, liver cirrhosis, and chronic thrombocytopenia s/p BM bx who was admitted few days ago with complaints of lower abdominal pain and nausea and rectal bleed and fever and in ED was found to have cholecystitis with non-obstructing cholelithiasis , high lactate and thrombocytopenia and fever of 102. pt. has been on empiric abx since admission by the primary team and i'm asked to evaluate today because his urine and blood cx grew e.coli. pt. seen in med-surg floor today and pt. is sitting up in chair. He denies any fever or chills, denies any sob, mild cough without phlegm, denies any n/v, denies any abd. pain but c/o bloating sensation. pt. has been on vanco and zosyn since admission and as per med records has also received platelet transfusion. Review of Systems - Review of Systems Review of Systems: ROS- denies any fever or chills now but had fever on admission, denies any BRYANT, denies any sob but states has developed dry cough today, denies any chest pain, denies any abd. pain now but had it on admission, denies any rectal bleeding now and c/o feeling somewhat constipated and bloated, denies any n/v, denies any dysurea denies any sick contacts denies any recent travel Past Patient History - Infectious Disease Hx of Infectious Diseases: None - Past Medical History & Family History Past Medical History?: Yes - Past Social History Smoking Status: Never Smoked Home Situation {Lives}: With Family - CARDIAC Hx Hypertension: Yes - PULMONARY Hx Respiratory Disorders: No - NEUROLOGICAL Hx Neurological Disorder: No - HEENT Hx HEENT Problems: No - RENAL Hx Chronic Kidney Disease: No - ENDOCRINE/METABOLIC Hx Endocrine Disorders: No - INTEGUMENTARY Hx Dermatological Problems: No - MUSCULOSKELETAL/RHEUMATOLOGICAL Hx Musculoskeletal Disorders: No Hx Falls: No - GASTROINTESTINAL Hx Gastrointestinal Disorders: Yes Other/Comment: GERD - GENITOURINARY/GYNECOLOGICAL Hx Genitourinary Disorders: No - PSYCHIATRIC Hx Substance Use: No - SURGICAL HISTORY Hx Surgeries: No - ANESTHESIA Hx Anesthesia: No Hx Anesthesia Reactions: No Hx Malignant Hyperthermia: No Has any member of the family had a problem w/ anesthesia?: No Meds Allergies/Adverse Reactions: Allergies Allergy/AdvReac Type Severity Reaction Status Date / Time No Known Allergies Allergy Verified 06/02/15 11:45 - Medications Medications: Current Medications Acetaminophen (Tylenol 325mg Tab) 650 mg PO Q6 PRN PRN Reason: Fever >100.4 F Last Admin: 05/23/17 09:45 Dose: 650 mg Metronidazole (Flagyl 500mg/100ml Ns) 100 mls @ 100 mls/hr IVPB Q8@0400,1200, 2000 [facility] Last Admin: 05/23/17 03:48 Dose: 100 mls/hr Cefepime HCl 1 gm/ Sodium (Chloride) 100 mls @ 100 mls/hr IVPB Q12 [facility] Ondansetron HCl (Zofran Inj) 4 mg IVP Q4 PRN PRN Reason: Nausea/Vomiting Pantoprazole Sodium (Protonix Ec Tab) 40 mg PO DAILY [facility] Last Admin: 05/23/17 09:17 Dose: 40 mg Physical Exam - Constitutional Appears: Non-toxic, No Acute Distress - Head Exam Head Exam: ATRAUMATIC - Eye Exam Eye Exam: EOMI, PERRL - ENT Exam ENT Exam: Normal Oropharynx - Respiratory Exam Respiratory Exam: Clear to Auscultation Bilateral, NORMAL BREATHING PATTERN - Cardiovascular Exam Cardiovascular Exam: RRR, +S1, +S2 - GI/Abdominal Exam GI & Abdominal Exam: Distended, Normal Bowel Sounds Additional comments: No tenderness + BS - Extremities Exam Extremities exam: Positive for: normal inspection - Neurological Exam Neurological exam: Alert, Oriented x3 Results - Vital Signs Recent Vital Signs: Last Vital Signs Temp 101.8 F H 05/23/17 10:06 Pulse 71 05/23/17 08:00 Resp 20 05/23/17 08:00 BP 138/67 05/23/17 08:00 Pulse Ox 91 L 05/23/17 08:00 - Labs Result Diagrams: 05/23/17 06:20 05/23/17 06:20 Labs: Laboratory Results - last 24 hr 05/21/17 05/23/17 05/23/17 11:18 06:20 06:20 WBC 5.2 RBC 3.86 L Hgb 12.5 Hct 35.9 MCV 93.0 MCH 32.3 H MCHC 34.7 RDW 14.4 Plt Count 25 L* MPV 10.5 Neut % (Auto) 82.2 H Lymph % (Auto) 7.5 L [place] % (Auto) 10.0 Eos % (Auto) 0.2 Baso % (Auto) 0.1 Neut # 4.3 Lymph # 0.4 L [place] # 0.5 Eos # 0.0 Baso # 0.0 Neutrophils % (Manual) 88 H Band Neutrophils % 1 Lymphocytes % (Manual) 5 L Monocytes % (Manual) 6 Toxic Granulation Present Platelet Estimate Markedly decreased L Sodium 134 Potassium 3.5 L Chloride 105 Carbon Dioxide 22 Anion Gap 11 BUN 12 Creatinine 0.7 L Est GFR ( Amer) > 60 Est GFR (Non-Af Amer) > 60 Random Glucose 116 H Calcium 7.9 L Total Bilirubin 3.9 H AST 97 H ALT 70 Alkaline Phosphatase 126 D Total Protein 6.3 Albumin 2.7 L Globulin 3.7 Albumin/Globulin Ratio 0.7 L Free PSA 0.2 % Free PSA 22 L Total PSA 0.9 Prostate Cancer Risk 1 Laboratory Results - last 72 hr 05/21/17 05/21/17 05/21/17 04:25 04:25 11:18 WBC 4.5 L RBC 3.47 L Hgb 11.3 L Hct 33.4 L MCV 96.2 H MCH 32.6 H MCHC 33.9 RDW 14.6 H Plt Count 18 L* D MPV Neut % (Auto) Lymph % (Auto) [place] % (Auto) Eos % (Auto) Baso % (Auto) Neut # Lymph # [place] # Eos # Baso # Neutrophils % (Manual) Band Neutrophils % Lymphocytes % (Manual) Monocytes % (Manual) Toxic Granulation Platelet Estimate Retic Count Sodium 137 Potassium 3.8 Chloride 112 H Carbon Dioxide 19 L Anion Gap 10 BUN 19 Creatinine 0.9 Est GFR ( Amer) > 60 Est GFR (Non-Af Amer) > 60 Random Glucose 97 Calcium 7.6 L Ferritin Total Bilirubin 2.5 H Direct Bilirubin 1.2 H AST 76 H ALT 58 Alkaline Phosphatase 77 Total Protein 6.2 L Albumin 2.6 L Globulin 3.6 Albumin/Globulin Ratio 0.7 L Free PSA 0.2 % Free PSA 22 L Total PSA 0.9 Prostate Cancer Risk 1 Vitamin B12 Folate Urine Color Urine Clarity Urine pH Ur Specific [place] Urine Protein Urine Glucose (UA) Urine Ketones Urine Blood Urine Nitrate Urine Bilirubin Urine Urobilinogen Ur Leukocyte Esterase Urine RBC (Auto) Urine Microscopic WBC Urine Bacteria 05/22/17 05/22/17 05/22/17 04:30 04:30 04:30 WBC 6.2 RBC 3.72 L Hgb 12.3 Hct 35.1 MCV 94.4 H MCH 33.0 H MCHC 35.0 RDW 14.4 Plt Count 27 L* MPV Neut % (Auto) Lymph % (Auto) [place] % (Auto) Eos % (Auto) Baso % (Auto) Neut # Lymph # [place] # Eos # Baso # Neutrophils % (Manual) Band Neutrophils % Lymphocytes % (Manual) Monocytes % (Manual) Toxic Granulation Platelet Estimate Retic Count 1.5 Sodium 134 Potassium 3.5 L Chloride 106 Carbon Dioxide 20 L Anion Gap 12 BUN 14 Creatinine 0.8 Est GFR ( Amer) > 60 Est GFR (Non-Af Amer) > 60 Random Glucose 110 Calcium 7.9 L Ferritin 152.0 Total Bilirubin 3.6 H Direct Bilirubin AST 96 H D ALT 65 Alkaline Phosphatase 102 Total Protein 6.7 Albumin 2.7 L Globulin 3.9 Albumin/Globulin Ratio 0.7 L Free PSA % Free PSA Total PSA Prostate Cancer Risk Vitamin B12 514 Folate 9.5 Urine Color Urine Clarity Urine pH Ur Specific [place] Urine Protein Urine Glucose (UA) Urine Ketones Urine Blood Urine Nitrate Urine Bilirubin Urine Urobilinogen Ur Leukocyte Esterase Urine RBC (Auto) Urine Microscopic WBC Urine Bacteria 05/23/17 05/23/17 05/23/17 06:20 06:20 16:43 WBC 5.2 RBC 3.86 L Hgb 12.5 Hct 35.9 MCV 93.0 MCH 32.3 H MCHC 34.7 RDW 14.4 Plt Count 25 L* MPV 10.5 Neut % (Auto) 82.2 H Lymph % (Auto) 7.5 L [place] % (Auto) 10.0 Eos % (Auto) 0.2 Baso % (Auto) 0.1 Neut # 4.3 Lymph # 0.4 L [place] # 0.5 Eos # 0.0 Baso # 0.0 Neutrophils % (Manual) 88 H Band Neutrophils % 1 Lymphocytes % (Manual) 5 L Monocytes % (Manual) 6 Toxic Granulation Present Platelet Estimate Markedly decreased L Retic Count Sodium 134 Potassium 3.5 L Chloride 105 Carbon Dioxide 22 Anion Gap 11 BUN 12 Creatinine 0.7 L Est GFR ( Amer) > 60 Est GFR (Non-Af Amer) > 60 Random Glucose 116 H Calcium 7.9 L Ferritin Total Bilirubin 3.9 H Direct Bilirubin AST 97 H ALT 70 Alkaline Phosphatase 126 D Total Protein 6.3 Albumin 2.7 L Globulin 3.7 Albumin/Globulin Ratio 0.7 L Free PSA % Free PSA Total PSA Prostate Cancer Risk Vitamin B12 Folate Urine Color [place] Urine Clarity Slighty-cloudy Urine pH 7.0 Ur Specific [place] 1.012 Urine Protein Negative Urine Glucose (UA) Neg Urine Ketones Negative Urine Blood Negative Urine Nitrate Negative Urine Bilirubin Negative Urine Urobilinogen 4.0 Ur Leukocyte Esterase Neg Urine RBC (Auto) 4 H Urine Microscopic WBC 2 Urine Bacteria Few H Microbiology 05/19/17 12:30 Blood-Venous Blood Culture - Final Escherichia Coli 05/19/17 12:30 Blood-Venous Gram Stain - Final 05/19/17 06:55 Nose MRSA Culture (Admit) - Final MRSA NOT DETECTED 05/19/17 15:00 Urine,Clean Catch Urine Culture - Final Escherichia Coli Accession No. : [id number] Patient Name / ID : ROSAURA BASILIO / [id number] Exam Date : 05/23/2017 11:54:10 ( Approved ) Study Comment : Sex / Age : M / 72Y Creator : Betito Mckee MD Dictator : Betito Mckee MD Adjunct Trainer : Paper Pattern Folder : Betito Mckee MD Approver2 : Report Date : 05/23/2017 13:06:43 My Comment : PROCEDURE: CT Chest without contrast HISTORY: Congestion, sob COMPARISON: None. TECHNIQUE: Contiguous axial images were obtained through the chest without intravenous contrast enhancement. Sagittal and coronal reconstructions were performed. Radiation dose (DLP): 674.91 mGy-cm. This CT exam was performed using one or more of the following dose reduction techniques: Automated exposure control, adjustment of the mA and/or kV according to patient size, and/or use of iterative reconstruction technique. FINDINGS: LUNGS: Evaluation limited due to extensive respiratory motion artifact. No acute infiltrate. Minimal bilateral lower lobe compressive atelectasis secondary to pleural effusions. MEDIASTINUM: Unremarkable thoracic aorta. No aneurysm. Normal sized heart. Mild dilatation of the main pulmonary artery to a diameter of 3.3 cm. This may correlate with pulmonary arterial hypertension. There is mediastinal lymphadenopathy. Enlarged nodes are seen in the paratracheal, AP window and sub carinal regions. No definite hilar lymphadenopathy. PLEURA: Bilateral small to moderate pleural effusions. No loculation evident. BONES: No fracture. Minimal thoracic dextroscoliosis. UPPER ABDOMEN: Nodular hepatic contour consistent with hepatic cirrhosis. Splenomegaly. Ascites. Nonspecific thickening of gallbladder wall. No evidence of cholelithiasis. OTHER FINDINGS: None. IMPRESSION: Bilateral small to moderate pleural effusions. No acute infiltrate. Minimal bilateral lower lobe compressive atelectasis. Mediastinal lymphadenopathy of uncertain significance. Mild dilatation of main pulmonary artery. Hepatic cirrhosis. Splenomegaly. Ascites. Accession No. : [id number] Patient Name / ID : ROSAURA BASILIO / [id number] Exam Date : 05/19/2017 14:06:22 ( Approved ) Study Comment : Sex / Age : M / 72Y Creator : Anya Peterson MD Dictator : Anya Peterson MD Adjunct Trainer : Paper Pattern Folder : Anya Peterson MD Approver2 : Report Date : 05/19/2017 15:15:41 My Comment : PROCEDURE: CT Abdomen and Pelvis with contrast HISTORY: lower abd pain, fever, gi bleed COMPARISON: None available. TECHNIQUE: Contrast dose: 95 mL Omnipaque 300 Radiation dose: Total exam DLP = 1056.89 mGy-cm. This CT exam was performed using one or more of the following dose reduction techniques: Automated exposure control, adjustment of the mA and/or kV according to patient size, and/or use of iterative reconstruction technique. FINDINGS: LOWER THORAX: Mild bibasilar atelectasis. No visible pleural effusion or pneumothorax. Small hiatal hernia. Sub cm paraesophageal lymph nodes measuring up to 9 mm in short axis. LIVER: Trace perihepatic ascites. Hepatomegaly. Nodular hepatic contour. Heterogeneous hepatic parenchyma. Numerous too small to characterize hepatic hypodensities measuring up to 7 mm at the hepatic dome. GALLBLADDER AND BILE DUCTS: Gallbladder wall thickening/pericholecystic edema. Punctate calcified gallstone. PANCREAS: Unremarkable. SPLEEN: Splenomegaly. ADRENALS: Unremarkable. KIDNEYS AND URETERS: The kidneys enhance symmetrically. No hydronephrosis or obstructing calculus identified. VASCULATURE: Numerous varices, left mid to lower abdomen. No aortic aneurysm. BOWEL: Stomach is nondistended. Lack of oral contrast limits evaluation for bowel pathology. Bowel loops appear within normal limits of caliber without evidence of obstruction. Diverticulosis without CT evidence of acute diverticulitis. APPENDIX: The appendix appears within normal limits of caliber. No secondary signs of acute appendicitis. PERITONEUM: No significant free fluid. No definite free air. LYMPH NODES: No bulky adenopathy identified. BLADDER: Under distended urinary bladder appears otherwise grossly unremarkable. REPRODUCTIVE: Heterogeneous enlarged prostate gland measures approximately 5.6 x 6.9 cm. BONES: Degenerative changes. Osseous demineralization. Suspect Schmorl's nodes involving the inferior endplate of L4. Vacuum disc phenomenon at L5-S1. OTHER FINDINGS: Small fat containing umbilical hernia. IMPRESSION: Cirrhotic appearing liver; nodular hepatic contour. Heterogeneous hepatic parenchyma. Numerous too small to characterize hepatic hypodensities measuring up to 7 mm, hepatic dome. Trace perihepatic ascites. Gallbladder wall thickening/pericholecystic edema. Punctate calcified gallstone. Splenomegaly. Numerous varices in the left mid to lower abdomen. Diverticulosis without CT evidence of acute diverticulitis. Heterogeneous enlarged prostate gland. Recommend correlation with PSA. Additional findings as above. Assessment & Plan (1) Cholecystitis Status: Acute (2) Coagulopathy Status: Acute (3) Sepsis Status: Acute (4) Thrombocytopenia Status: Acute (5) UTI (urinary tract infection) Status: Acute (6) Bacteremia due to Escherichia coli Status: Acute - Assessment and Plan (Free Text) Assessment: A/P- 72 year old male admitted with abd pain, fever, recatl bleed found to have acute on chronic thrombocytopenia, liver cirrhosis, cholecystitis and e.coli UTO and bacteremia. thrombocytopenia most likely multifactorial secondary to both the cirrhosis and sepsis itself. e.coli bactermia secondary to the source E.coli UTI. e.coli is reported as pansensitive. CT of chest reported as moderate b/l pleural effusions. abd ct report noted as well. plan- check 2 more blood cx. advise to continue with current cefepime IV as the e.coli is sensitive to this abx. pt. will require total of 21 days of Iv antibiotics for this gram neg bacteremia. r/o any vegetation on echo ( ws not reported on the echo that was already done). as per surgical team not a surgical candidate for cholecystitis at this time due to thrombocytopenia and coagulapathy. All the above d/w patent and is daughter who is also at bedside at length and they verbalize full understanding of all above. Thank you for allowing me to take part in the care of this patient.
--- NOTE | 2017-05-23 12:09 | CP.PCM.PN ---
Subjective - Date & Time of Evaluation Date of Evaluation: 05/23/17 Time of Evaluation: 08:30 - Subjective Subjective: Surgery Progress note. Dr. Ring Pt seen and examined at bedside. Family at bedside. Patient is sitting up in bed. Still with mild abdominal pain in lower abdomen. No N/V/D. Had Temp of 102F overnight. Tolerating diet. Has had regular BMs. Denies any new complaints. Objective - Vital Signs/Intake and Output Vital Signs (last 24 hours): Temp Pulse Resp BP Pulse Ox 101.8 F H 71 20 138/67 91 L 05/23/17 10:06 05/23/17 08:00 05/23/17 08:00 05/23/17 08:00 05/23/17 08:00 - Medications Medications: Current Medications Acetaminophen (Tylenol 325mg Tab) 650 mg PO Q6 PRN PRN Reason: Fever >100.4 F Last Admin: 05/23/17 09:45 Dose: 650 mg Metronidazole (Flagyl 500mg/100ml Ns) 100 mls @ 100 mls/hr IVPB Q8@0400,1200, 2000 [facility] Last Admin: 05/23/17 03:48 Dose: 100 mls/hr Cefepime HCl 1 gm/ Sodium (Chloride) 100 mls @ 100 mls/hr IVPB Q12 [facility] Ondansetron HCl (Zofran Inj) 4 mg IVP Q4 PRN PRN Reason: Nausea/Vomiting Pantoprazole Sodium (Protonix Ec Tab) 40 mg PO DAILY [facility] Last Admin: 05/23/17 09:17 Dose: 40 mg - Labs Labs: 05/23/17 06:20 05/23/17 06:20 PT 22.1 Seconds (9.8-13.1) H 05/20/17 04:30 INR 1.9 (0.9-1.2) H 05/20/17 04:30 APTT 42.8 Seconds (25.6-37.1) H 05/20/17 04:30 - Constitutional Appears: Well, No Acute Distress - Head Exam Head Exam: ATRAUMATIC, NORMAL INSPECTION, NORMOCEPHALIC - Eye Exam Eye Exam: EOMI - ENT Exam ENT Exam: Mucous Membranes Moist - Respiratory Exam Respiratory Exam: NORMAL BREATHING PATTERN - GI/Abdominal Exam GI & Abdominal Exam: Soft. absent: Distended, Firm, Guarding, Rigid, Tenderness , Rebound - Extremities Exam Extremities Exam: Normal Inspection. absent: Calf Tenderness - Neurological Exam Neurological Exam: Alert, Awake, Oriented x3 - Psychiatric Exam Psychiatric exam: Normal Affect, Normal Mood - Skin Skin Exam: Dry, Intact, Normal Color, Warm Assessment and Plan - Assessment and Plan (Free Text) Assessment: 72M w. lower abdominal pain - U/S report: thickend GB wall. Small GB polyps - Thrombocytopenia and LFTs likely secondary to chronic liver disease - Urine Cx noted - Monitor and Transfuse platelets prn - PT is a poor candidate for surgery. No plans for any acute surgical intervention at this time - Will continue w. conservative management, abx - Diet as tolerated Further Recs as per Dr. Jhonathan Thibodeaux PGY1
--- NOTE | 2017-05-23 13:12 | CT ---
PROCEDURE: CT Chest without contrast HISTORY: Congestion, sob COMPARISON: None. TECHNIQUE: Contiguous axial images were obtained through the chest without intravenous contrast enhancement. Sagittal and coronal reconstructions were performed. Radiation dose (DLP): 674.91 mGy-cm. This CT exam was performed using one or more of the following dose reduction techniques: Automated exposure control, adjustment of the mA and/or kV according to patient size, and/or use of iterative reconstruction technique. FINDINGS: LUNGS: Evaluation limited due to extensive respiratory motion artifact. No acute infiltrate. Minimal bilateral lower lobe compressive atelectasis secondary to pleural effusions. MEDIASTINUM: Unremarkable thoracic aorta. No aneurysm. Normal sized heart. Mild dilatation of the main pulmonary artery to a diameter of 3.3 cm. This may correlate with pulmonary arterial hypertension. There is mediastinal lymphadenopathy. Enlarged nodes are seen in the paratracheal, AP window and sub carinal regions. No definite hilar lymphadenopathy. PLEURA: Bilateral small to moderate pleural effusions. No loculation evident. BONES: No fracture. Minimal thoracic dextroscoliosis. UPPER ABDOMEN: Nodular hepatic contour consistent with hepatic cirrhosis. Splenomegaly. Ascites. Nonspecific thickening of gallbladder wall. No evidence of cholelithiasis. OTHER FINDINGS: None. IMPRESSION: Bilateral small to moderate pleural effusions. No acute infiltrate. Minimal bilateral lower lobe compressive atelectasis. Mediastinal lymphadenopathy of uncertain significance. Mild dilatation of main pulmonary artery. Hepatic cirrhosis. Splenomegaly. Ascites.
[2017-05-23] MEDS: Cefepime 1 GM in Sodium Chloride 0.9% 100 ML IVPB SCH ×2 (14:56→20:57)
[2017-05-23 17:18] LABS: URINE BACTERIA FEW (<OCC); URINE BILIRUBIN NEGATIVE (NEGATIVE); URINE BLOOD NEGATIVE (NEGATIVE); URINE CLARITY SLIGHTY-CLOUDY (Clear); URINE COLOR AMBER (YELLOW); URINE GLUCOSE (UA) NEG (Normal); URINE LEUKOCYTE ESTERASE NEG Leu/uL (Negative); URINE NITRATE NEGATIVE (NEGATIVE); URINE PROTEIN NEGATIVE (NEGATIVE)
[2017-05-23 17:50] LABS: FOLATE 9.5 ng/mL
--- NOTE | 2017-05-23 18:47 | CP.PCM.PN ---
Subjective - Date & Time of Evaluation Date of Evaluation: 05/23/17 Time of Evaluation: 16:00 - Subjective Subjective: Feeling better but still has abdominal bloating Objective - Vital Signs/Intake and Output Vital Signs (last 24 hours): Temp Pulse Resp BP Pulse Ox 98.1 F 68 17 124/64 94 L 05/23/17 16:14 05/23/17 16:14 05/23/17 16:14 05/23/17 16:14 05/23/17 16:14 - Medications Medications: Current Medications Acetaminophen (Tylenol 325mg Tab) 650 mg PO Q6 PRN PRN Reason: Fever >100.4 F Last Admin: 05/23/17 09:45 Dose: 650 mg Metronidazole (Flagyl 500mg/100ml Ns) 100 mls @ 100 mls/hr IVPB Q8@0400,1200, 2000 [facility] Last Admin: 05/23/17 12:39 Dose: 100 mls/hr Cefepime HCl 1 gm/ Sodium (Chloride) 100 mls @ 100 mls/hr IVPB Q12 [facility] Last Admin: 05/23/17 14:56 Dose: 100 mls/hr Ondansetron HCl (Zofran Inj) 4 mg IVP Q4 PRN PRN Reason: Nausea/Vomiting Pantoprazole Sodium (Protonix Ec Tab) 40 mg PO DAILY [facility] Last Admin: 05/23/17 09:17 Dose: 40 mg - Labs Labs: 05/23/17 06:20 05/23/17 06:20 PT 22.1 Seconds (9.8-13.1) H 05/20/17 04:30 INR 1.9 (0.9-1.2) H 05/20/17 04:30 APTT 42.8 Seconds (25.6-37.1) H 05/20/17 04:30 - Head Exam Head Exam: ATRAUMATIC - Eye Exam Eye Exam: Normal appearance - ENT Exam ENT Exam: Mucous Membranes Dry - Respiratory Exam Respiratory Exam: NORMAL BREATHING PATTERN - Cardiovascular Exam Cardiovascular Exam: +S1, +S2 - GI/Abdominal Exam GI & Abdominal Exam: Normal Bowel Sounds - Extremities Exam Extremities Exam: Normal Inspection Assessment and Plan (1) Thrombocytopenia Assessment & Plan: liver disease, thrombopoietin dysregulation splenic sequestration Status: Acute (2) Coagulopathy Assessment & Plan: liver disease Status: Acute (3) Anemia Assessment & Plan: H/H fairly stable Status: Acute
[2017-05-24] MEDS: metroNIDAZOLE 500mg/100ml NS 100 ML IVPB SCH ×3 (04:26→20:08)
[2017-05-24 07:07] LABS: BASO % 0.2 % (0.0-2.0); EOS % 0.7 % (0.0-4.0); HEMOGLOBIN 11.9 g/dL (12.0-18.0); LYMPH # 0.6 K/uL (1.0-4.3); LYMPH % 13.2 % (20.0-40.0); MEAN CELL VOLUME 93.2 fl (80.0-94.0); MEAN CORPUSCULAR HEMOGLOBIN 32.7 pg (27.0-31.0); MEAN CORPUSCULAR HGB CONC 35.1 g/dL (33.0-37.0); MEAN PLATELET VOLUME 10.2 fl (7.2-11.7); MONO # 0.5 K/uL (0.0-0.8); MONO % 12.2 % (0.0-10.0); NEUT # 3.3 K/uL (1.8-7.0); NEUT % 73.7 % (50.0-75.0); NRBC % 0.1 % (0.0-0.0); RBC 3.64 Mil/uL (4.40-5.90); RED CELL DISTRIBUTION WIDTH 14.2 % (11.5-14.5); WHITE BLOOD COUNT 4.5 K/uL (4.8-10.8)
[2017-05-24 07:38] LABS: ALB/GLOB RATIO 0.7 (1.0-2.1); ALBUMIN 2.5 g/dL (3.5-5.0); ALT/SGPT 65 U/L (21-72); AST/SGOT 87 U/L (17-59); BLOOD UREA NITROGEN 11 mg/dl (9-20); CALCIUM 7.7 mg/dL (8.4-10.2); GFR AFRICAN-AMERICAN > 60; GFR NON-AFRICAN AMERICAN > 60
--- NOTE | 2017-05-24 08:19 | CP.PCM.PN ---
Subjective - Date & Time of Evaluation Date of Evaluation: 05/24/17 Time of Evaluation: 08:17 - Subjective Subjective: Surgery Progress note. Dr. Ring. Pt seen and examined at bedside. No acute events overnight. Has been having regular BMs. No F/C. No N/V/D. Denies urinary symptoms Objective - Vital Signs/Intake and Output Vital Signs (last 24 hours): Temp Pulse Resp BP Pulse Ox 98.9 F 70 17 130/67 95 05/24/17 05:00 05/24/17 05:00 05/24/17 05:00 05/24/17 00:27 05/24/17 05:00 - Medications Medications: Current Medications Acetaminophen (Tylenol 325mg Tab) 650 mg PO Q6 PRN PRN Reason: Fever >100.4 F Last Admin: 05/23/17 09:45 Dose: 650 mg Metronidazole (Flagyl 500mg/100ml Ns) 100 mls @ 100 mls/hr IVPB Q8@0400,1200, 2000 [facility] Last Admin: 05/24/17 04:26 Dose: 100 mls/hr Cefepime HCl 1 gm/ Sodium (Chloride) 100 mls @ 100 mls/hr IVPB Q12 [facility] Last Admin: 05/23/17 20:57 Dose: 100 mls/hr Ondansetron HCl (Zofran Inj) 4 mg IVP Q4 PRN PRN Reason: Nausea/Vomiting Pantoprazole Sodium (Protonix Ec Tab) 40 mg PO DAILY [facility] Last Admin: 05/23/17 09:17 Dose: 40 mg - Labs Labs: 05/24/17 06:25 05/24/17 06:25 PT 22.1 Seconds (9.8-13.1) H 05/20/17 04:30 INR 1.9 (0.9-1.2) H 05/20/17 04:30 APTT 42.8 Seconds (25.6-37.1) H 05/20/17 04:30 - Constitutional Appears: Well, No Acute Distress - Head Exam Head Exam: ATRAUMATIC, NORMAL INSPECTION, NORMOCEPHALIC - Eye Exam Eye Exam: EOMI - ENT Exam ENT Exam: Mucous Membranes Moist - Respiratory Exam Respiratory Exam: NORMAL BREATHING PATTERN - GI/Abdominal Exam GI & Abdominal Exam: Soft. absent: Distended, Firm, Guarding, Rigid, Tenderness , Rebound - Extremities Exam Extremities Exam: Normal Inspection. absent: Calf Tenderness, Pedal Edema - Neurological Exam Neurological Exam: Alert, Awake, Oriented x3 - Psychiatric Exam Psychiatric exam: Normal Affect, Normal Mood - Skin Skin Exam: Dry, Intact, Normal Color, Warm Assessment and Plan - Assessment and Plan (Free Text) Assessment: 72M w. lower abdominal pain - Abd US: thickend GB wall. Small GB polyps - Thrombocytopenia and LFTs likely secondary to chronic liver disease - Urine Cx noted - Continue conservative management, abx - Diet as tolerated - No plans for any acute surgical intervention at this time - Surgery will sign-off. Please re-consult as necessary Further Recs as per Dr. Jhonathan Thibodeaux PGY1
[2017-05-24] MEDS: Cefepime 1 GM in Sodium Chloride 0.9% 100 ML IVPB SCH ×2 (09:08→21:57)
[2017-05-24] MEDS: Pantoprazole 40 mg EC Tab PO SCH (09:08)
--- NOTE | 2017-05-24 09:33 | CP.PCM.PN ---
<Desean Dean - Last Filed: 05/24/17 12:08> Subjective - Date & Time of Evaluation Date of Evaluation: 05/24/17 Time of Evaluation: 09:00 - Subjective Subjective: pt seen and examined at bedside this morning. No acute events overnight. Pt lying in bed comfortably, NAD. Pt reports improvement in SOB and general feeling. Tolerating PO intake without difficulty. Minor suprapubic discomfort but improving. Afebrile. No new complaints. Denies fever/chills, headaches, changes in vision, CP/SOB/palpitations, N/V/D/C, urinary symptoms, leg pain. Objective - Vital Signs/Intake and Output Vital Signs (last 24 hours): Temp Pulse Resp BP Pulse Ox 98.9 F 68 20 125/57 L 94 L 05/24/17 08:31 05/24/17 08:31 05/24/17 08:31 05/24/17 08:31 05/24/17 08:31 - Medications Medications: Current Medications Acetaminophen (Tylenol 325mg Tab) 650 mg PO Q6 PRN PRN Reason: Fever >100.4 F Last Admin: 05/23/17 09:45 Dose: 650 mg Metronidazole (Flagyl 500mg/100ml Ns) 100 mls @ 100 mls/hr IVPB Q8@0400,1200, 2000 [facility] Last Admin: 05/24/17 04:26 Dose: 100 mls/hr Cefepime HCl 1 gm/ Sodium (Chloride) 100 mls @ 100 mls/hr IVPB Q12 [facility] Last Admin: 05/24/17 09:08 Dose: 100 mls/hr Ondansetron HCl (Zofran Inj) 4 mg IVP Q4 PRN PRN Reason: Nausea/Vomiting Pantoprazole Sodium (Protonix Ec Tab) 40 mg PO DAILY [facility] Last Admin: 05/24/17 09:08 Dose: 40 mg - Labs Labs: 05/24/17 06:25 05/24/17 06:25 PT 22.1 Seconds (9.8-13.1) H 05/20/17 04:30 INR 1.9 (0.9-1.2) H 05/20/17 04:30 APTT 42.8 Seconds (25.6-37.1) H 05/20/17 04:30 - Constitutional Appears: Non-toxic, No Acute Distress - Eye Exam Eye Exam: EOMI Pupil Exam: PERRL - ENT Exam ENT Exam: Mucous Membranes Moist - Neck Exam Neck Exam: Full ROM - Respiratory Exam Respiratory Exam: Clear to Ausculation Bilateral, NORMAL BREATHING PATTERN. absent: Accessory Muscle Use, Decreased Breath Sounds, Rales, Rhonchi, Wheezes, Respiratory Distress - Cardiovascular Exam Cardiovascular Exam: REGULAR RHYTHM, RRR, +S1, +S2. absent: Tachycardia, Gallop , JVD, Rubs, Murmur - GI/Abdominal Exam GI & Abdominal Exam: Distended, Soft, Tenderness (mild tenderness to deep palpation suprapubically ), Normal Bowel Sounds. absent: Firm, Guarding, Rigid , Mass, Rebound - Extremities Exam Extremities Exam: Full ROM. absent: Calf Tenderness, Tenderness - Back Exam Back Exam: NORMAL INSPECTION - Neurological Exam Neurological Exam: Alert, Awake, CN II-XII Intact, Oriented x3 - Psychiatric Exam Psychiatric exam: Normal Affect, Normal Mood - Skin Skin Exam: Dry, Intact, Normal Color, Warm Assessment and Plan (1) Severe sepsis Assessment & Plan: afebrile, resolving sepsis secondary to E. Coli bacteremia ID on board, agrees with current Abx regimen, but reports pt will require 21 days of abx for gram neg bacteremia f/u blood cultures f/u cbc f/u cmp Status: Acute (2) UTI (urinary tract infection) Assessment & Plan: c/w with current Abx regimen Status: Acute (3) Cholecystitis Assessment & Plan: no surgical intervention as this point conservative tx as per surgical team Status: Acute (4) Thrombocytopenia Assessment & Plan: likely secondary to liver cirrhosis and sepsis combined currently being followed by Hem/onc Dr. Fabian f/u CBCs Status: Acute <Ruiz,Arthur K - Last Filed: 05/25/17 11:10> Objective - Vital Signs/Intake and Output Vital Signs (last 24 hours): Temp Pulse Resp BP Pulse Ox 97.9 F 75 18 144/71 95 05/25/17 08:52 05/25/17 08:52 05/25/17 08:52 05/25/17 08:52 05/25/17 08:52 - Medications Medications: Current Medications Acetaminophen (Tylenol 325mg Tab) 650 mg PO Q6 PRN PRN Reason: Fever >100.4 F Last Admin: 05/23/17 09:45 Dose: 650 mg Acetaminophen (Tylenol 325mg Tab) 650 mg PO Q6 PRN PRN Reason: pain (5-10) Last Admin: 05/24/17 20:04 Dose: 650 mg Metronidazole (Flagyl 500mg/100ml Ns) 100 mls @ 100 mls/hr IVPB Q8@0400,1200, 2000 [facility] Last Admin: 05/25/17 03:39 Dose: 100 mls/hr Cefepime HCl 1 gm/ Sodium (Chloride) 100 mls @ 100 mls/hr IVPB Q12 [facility] Last Admin: 05/25/17 09:06 Dose: 100 mls/hr Ondansetron HCl (Zofran Inj) 4 mg IVP Q4 PRN PRN Reason: Nausea/Vomiting Pantoprazole Sodium (Protonix Ec Tab) 40 mg PO DAILY [facility] Last Admin: 05/25/17 09:07 Dose: 40 mg - Labs Labs: 05/25/17 05:30 05/25/17 05:30 PT 22.1 Seconds (9.8-13.1) H 05/20/17 04:30 INR 1.9 (0.9-1.2) H 05/20/17 04:30 APTT 42.8 Seconds (25.6-37.1) H 05/20/17 04:30 Assessment and Plan - Assessment and Plan (Free Text) Assessment: Patient was personally seen and examined by me in rounds with residents. Available labs and diagnostic data reviewed. Case, Patient's condition and management plan discussed with residents in rounds. Agree with resident's progress note. Plan: As ordered.
[2017-05-24] MEDS ORDERED: Potassium Chloride 20 mEq ER Tab PO ONE (12:19)
--- NOTE | 2017-05-24 14:30 | CP.PCM.PN ---
Subjective - Date & Time of Evaluation Date of Evaluation: 05/24/17 Time of Evaluation: 14:29 - Subjective Subjective: Id Note- Pt. seen and examined today. denies any fever or chills. No new events overnight. Objective - Vital Signs/Intake and Output Vital Signs (last 24 hours): Temp Pulse Resp BP Pulse Ox 98.9 F 68 20 125/57 L 94 L 05/24/17 08:31 05/24/17 08:31 05/24/17 08:31 05/24/17 08:31 05/24/17 08:31 - Medications Medications: Current Medications Acetaminophen (Tylenol 325mg Tab) 650 mg PO Q6 PRN PRN Reason: Fever >100.4 F Last Admin: 05/23/17 09:45 Dose: 650 mg Metronidazole (Flagyl 500mg/100ml Ns) 100 mls @ 100 mls/hr IVPB Q8@0400,1200, 2000 [facility] Last Admin: 05/24/17 11:02 Dose: 100 mls/hr Cefepime HCl 1 gm/ Sodium (Chloride) 100 mls @ 100 mls/hr IVPB Q12 [facility] Last Admin: 05/24/17 09:08 Dose: 100 mls/hr Ondansetron HCl (Zofran Inj) 4 mg IVP Q4 PRN PRN Reason: Nausea/Vomiting Pantoprazole Sodium (Protonix Ec Tab) 40 mg PO DAILY [facility] Last Admin: 05/24/17 09:08 Dose: 40 mg - Labs Labs: - Additional Findings Additional findings: - Constitutional Appears: Non-toxic, No Acute Distress - Head Exam Head Exam: ATRAUMATIC - Eye Exam Eye Exam: EOMI, PERRL - ENT Exam ENT Exam: Normal Oropharynx - Respiratory Exam Respiratory Exam: Clear to Auscultation Bilateral, NORMAL BREATHING PATTERN - Cardiovascular Exam Cardiovascular Exam: RRR, +S1, +S2 - GI/Abdominal Exam GI & Abdominal Exam: Distended, Normal Bowel Sounds Additional comments: No tenderness + BS - Extremities Exam Extremities exam: Positive for: normal inspection - Neurological Exam Neurological exam: Alert, Oriented x 3 Laboratory Results - last 72 hr 05/21/17 05/22/17 05/22/17 11:18 04:30 04:30 WBC 6.2 RBC 3.72 L Hgb 12.3 Hct 35.1 MCV 94.4 H MCH 33.0 H MCHC 35.0 RDW 14.4 Plt Count 27 L* MPV Neut % (Auto) Lymph % (Auto) [place] % (Auto) Eos % (Auto) Baso % (Auto) Neut # Lymph # [place] # Eos # Baso # Neutrophils % (Manual) Band Neutrophils % Lymphocytes % (Manual) Monocytes % (Manual) Toxic Granulation Platelet Estimate Retic Count Sodium 134 Potassium 3.5 L Chloride 106 Carbon Dioxide 20 L Anion Gap 12 BUN 14 Creatinine 0.8 Est GFR ( Amer) > 60 Est GFR (Non-Af Amer) > 60 Random Glucose 110 Calcium 7.9 L Ferritin 152.0 Total Bilirubin 3.6 H AST 96 H D ALT 65 Alkaline Phosphatase 102 Total Protein 6.7 Albumin 2.7 L Globulin 3.9 Albumin/Globulin Ratio 0.7 L Free PSA 0.2 % Free PSA 22 L Total PSA 0.9 Prostate Cancer Risk 1 Vitamin B12 514 Folate 9.5 Urine Color Urine Clarity Urine pH Ur Specific [place] Urine Protein Urine Glucose (UA) Urine Ketones Urine Blood Urine Nitrate Urine Bilirubin Urine Urobilinogen Ur Leukocyte Esterase Urine RBC (Auto) Urine Microscopic WBC Urine Bacteria 05/22/17 05/23/17 05/23/17 04:30 06:20 06:20 WBC 5.2 RBC 3.86 L Hgb 12.5 Hct 35.9 MCV 93.0 MCH 32.3 H MCHC 34.7 RDW 14.4 Plt Count 25 L* MPV 10.5 Neut % (Auto) 82.2 H Lymph % (Auto) 7.5 L [place] % (Auto) 10.0 Eos % (Auto) 0.2 Baso % (Auto) 0.1 Neut # 4.3 Lymph # 0.4 L [place] # 0.5 Eos # 0.0 Baso # 0.0 Neutrophils % (Manual) 88 H Band Neutrophils % 1 Lymphocytes % (Manual) 5 L Monocytes % (Manual) 6 Toxic Granulation Present Platelet Estimate Markedly decreased L Retic Count 1.5 Sodium 134 Potassium 3.5 L Chloride 105 Carbon Dioxide 22 Anion Gap 11 BUN 12 Creatinine 0.7 L Est GFR ( Amer) > 60 Est GFR (Non-Af Amer) > 60 Random Glucose 116 H Calcium 7.9 L Ferritin Total Bilirubin 3.9 H AST 97 H ALT 70 Alkaline Phosphatase 126 D Total Protein 6.3 Albumin 2.7 L Globulin 3.7 Albumin/Globulin Ratio 0.7 L Free PSA % Free PSA Total PSA Prostate Cancer Risk Vitamin B12 Folate Urine Color Urine Clarity Urine pH Ur Specific [place] Urine Protein Urine Glucose (UA) Urine Ketones Urine Blood Urine Nitrate Urine Bilirubin Urine Urobilinogen Ur Leukocyte Esterase Urine RBC (Auto) Urine Microscopic WBC Urine Bacteria 05/23/17 05/24/17 05/24/17 16:43 06:25 06:25 WBC 4.5 L RBC 3.64 L Hgb 11.9 L Hct 33.9 L MCV 93.2 MCH 32.7 H MCHC 35.1 RDW 14.2 Plt Count 24 L* MPV 10.2 Neut % (Auto) 73.7 Lymph % (Auto) 13.2 L [place] % (Auto) 12.2 H Eos % (Auto) 0.7 Baso % (Auto) 0.2 Neut # 3.3 Lymph # 0.6 L [place] # 0.5 Eos # 0.0 Baso # 0.0 Neutrophils % (Manual) Band Neutrophils % Lymphocytes % (Manual) Monocytes % (Manual) Toxic Granulation Platelet Estimate Retic Count Sodium 135 Potassium 3.3 L Chloride 106 Carbon Dioxide 21 L Anion Gap 11 BUN 11 Creatinine 0.7 L Est GFR ( Amer) > 60 Est GFR (Non-Af Amer) > 60 Random Glucose 128 H Calcium 7.7 L Ferritin Total Bilirubin 3.0 H AST 87 H ALT 65 Alkaline Phosphatase 138 H Total Protein 6.3 Albumin 2.5 L Globulin 3.7 Albumin/Globulin Ratio 0.7 L Free PSA % Free PSA Total PSA Prostate Cancer Risk Vitamin B12 Folate Urine Color Julia Urine Clarity Slighty-cloudy Urine pH 7.0 Ur Specific [place] 1.012 Urine Protein Negative Urine Glucose (UA) Neg Urine Ketones Negative Urine Blood Negative Urine Nitrate Negative Urine Bilirubin Negative Urine Urobilinogen 4.0 Ur Leukocyte Esterase Neg Urine RBC (Auto) 4 H Urine Microscopic WBC 2 Urine Bacteria Few H Microbiology 05/23/17 16:43 Urine,Clean Catch Urine Culture - Final No Growth (<1,000 CFU/ML) 05/22/17 01:30 Naris MRSA Culture (Admit) - Final MRSA NOT DETECTED 05/23/17 10:15 Blood Blood Culture - Preliminary NO GROWTH AFTER 24 HOURS 05/19/17 12:30 Blood-Venous Blood Culture - Final Escherichia Coli 05/19/17 12:30 Blood-Venous Gram Stain - Final 05/19/17 06:55 Nose MRSA Culture (Admit) - Final MRSA NOT DETECTED 05/19/17 15:00 Urine,Clean Catch Urine Culture - Final Escherichia Coli Accession No. : [id number] Patient Name / ID : ROSAURA BASILIO / [id number] Exam Date : 05/23/2017 11:54:10 ( Approved ) Study Comment : Sex / Age : M / 72Y Creator : Betito Mckee MD Dictator : Betito Mckee MD Freight Router : Gas Systems Worker : Betito Mckee MD Approver2 : Report Date : 05/23/2017 13:06:43 My Comment : PROCEDURE: CT Chest without contrast HISTORY: Congestion, sob COMPARISON: None. TECHNIQUE: Contiguous axial images were obtained through the chest without intravenous contrast enhancement. Sagittal and coronal reconstructions were performed. Radiation dose (DLP): 674.91 mGy-cm. This CT exam was performed using one or more of the following dose reduction techniques: Automated exposure control, adjustment of the mA and/or kV according to patient size, and/or use of iterative reconstruction technique. FINDINGS: LUNGS: Evaluation limited due to extensive respiratory motion artifact. No acute infiltrate. Minimal bilateral lower lobe compressive atelectasis secondary to pleural effusions. MEDIASTINUM: Unremarkable thoracic aorta. No aneurysm. Normal sized heart. Mild dilatation of the main pulmonary artery to a diameter of 3.3 cm. This may correlate with pulmonary arterial hypertension. There is mediastinal lymphadenopathy. Enlarged nodes are seen in the paratracheal, AP window and sub carinal regions. No definite hilar lymphadenopathy. PLEURA: Bilateral small to moderate pleural effusions. No loculation evident. BONES: No fracture. Minimal thoracic dextroscoliosis. UPPER ABDOMEN: Nodular hepatic contour consistent with hepatic cirrhosis. Splenomegaly. Ascites. Nonspecific thickening of gallbladder wall. No evidence of cholelithiasis. OTHER FINDINGS: None. IMPRESSION: Bilateral small to moderate pleural effusions. No acute infiltrate. Minimal bilateral lower lobe compressive atelectasis. Mediastinal lymphadenopathy of uncertain significance. Mild dilatation of main pulmonary artery. Hepatic cirrhosis. Splenomegaly. Ascites. Assessment and Plan (1) Cholecystitis Status: Acute (2) Coagulopathy Status: Acute (3) Sepsis Status: Acute (4) Thrombocytopenia Status: Acute (5) UTI (urinary tract infection) Status: Acute (6) Bacteremia due to Escherichia coli Status: Acute - Assessment and Plan (Free Text) Assessment: A/P- 72 year old male admitted with abd pain, fever, recatl bleed found to have acute on chronic thrombocytopenia, liver cirrhosis, cholecystitis and e.coli UTO and bacteremia. thrombocytopenia most likely multifactorial secondary to both the cirrhosis and sepsis itself. e.coli bactermia secondary to the source E.coli UTI. e.coli is reported as pansensitive. CT of chest reported as moderate b/l pleural effusions. abd ct report noted as well. afebrile normal wbc count continues to be thrombocytopenic repeat blood cx - neg x 1 repeat urine cx- neg echo- no vegetations reported as per cardiology report. plan- check 2 more blood cx. advise to continue with current cefepime IV as the e.coli is sensitive to this abx. pt. will require total of 21 days of Iv antibiotics for this gram neg bacteremia.( does not need to be inpatient for the completion of the abx therapy )
[2017-05-25] MEDS: metroNIDAZOLE 500mg/100ml NS 100 ML IVPB SCH ×3 (03:39→20:54)
[2017-05-25 07:23] LABS: HEMOGLOBIN 11.7 g/dL (12.0-18.0); MEAN CELL VOLUME 93.3 fl (80.0-94.0); MEAN CORPUSCULAR HEMOGLOBIN 32.7 pg (27.0-31.0); RBC 3.57 Mil/uL (4.40-5.90); RED CELL DISTRIBUTION WIDTH 14.8 % (11.5-14.5); WHITE BLOOD COUNT 3.2 K/uL (4.8-10.8)
[2017-05-25 07:35] LABS: ALB/GLOB RATIO 0.7 (1.0-2.1); ALBUMIN 2.6 g/dL (3.5-5.0); ALT/SGPT 68 U/L (21-72); AST/SGOT 94 U/L (17-59); BLOOD UREA NITROGEN 10 mg/dl (9-20); CALCIUM 7.8 mg/dL (8.4-10.2); GFR AFRICAN-AMERICAN > 60; GFR NON-AFRICAN AMERICAN > 60
[2017-05-25] MEDS: Cefepime 1 GM in Sodium Chloride 0.9% 100 ML IVPB SCH ×2 (09:06→21:00)
[2017-05-25] MEDS: Pantoprazole 40 mg EC Tab PO SCH (09:07)
--- NOTE | 2017-05-25 09:41 | PN ---
DATE: 05/25/2017 SUBJECTIVE: The patient is seen and examined. H and P was noted. Consult note had appreciated. The patient remains in medical floor. I reviewed his data. He complains of back pain in the bed. No chest pain and no shortness of breath. Abdominal pain is adequately controlled. PHYSICAL EXAMINATION GENERAL: The patient is in no acute distress. VITAL SIGNS: Stable. CARDIOPULMONARY: S1 and S2 normal, regular. LUNGS: Good bilateral air entry. ABDOMEN: Soft, nontender, and no organomegaly. Bowel sounds are plus normal. EXTREMITIES: No calf swelling and no tenderness. No acute ischemia. CENTRAL NERVOUS SYSTEM: Essentially unchanged. DIAGNOSTIC DATA: Available diagnostic data reviewed. ASSESSMENT AND PLAN: Overall patient's general medical condition is improving. Plan as ordered. Arthur Ruiz MD
[2017-05-25] MEDS ORDERED: Potassium Chloride 20 mEq ER Tab PO ONE (10:31)
[2017-05-26] MEDS: metroNIDAZOLE 500mg/100ml NS 100 ML IVPB SCH ×3 (04:54→21:06)
[2017-05-26] MEDS: Cefepime 1 GM in Sodium Chloride 0.9% 100 ML IVPB SCH ×2 (08:40→21:07)
[2017-05-26] MEDS: Pantoprazole 40 mg EC Tab PO SCH (08:40)
--- NOTE | 2017-05-26 14:40 | CP.PCM.PN ---
Subjective - Date & Time of Evaluation Date of Evaluation: 05/25/17 Time of Evaluation: 18:00 - Subjective Subjective: Feeling better, less abdominal pain. Objective - Vital Signs/Intake and Output Vital Signs (last 24 hours): Temp Pulse Resp BP Pulse Ox 98.3 F 73 18 126/62 95 05/26/17 08:09 05/26/17 08:09 05/26/17 08:09 05/26/17 08:09 05/26/17 08:09 - Medications Medications: Current Medications Acetaminophen (Tylenol 325mg Tab) 650 mg PO Q6 PRN PRN Reason: Fever >100.4 F Last Admin: 05/23/17 09:45 Dose: 650 mg Acetaminophen (Tylenol 325mg Tab) 650 mg PO Q6 PRN PRN Reason: pain (5-10) Last Admin: 05/24/17 20:04 Dose: 650 mg Metronidazole (Flagyl 500mg/100ml Ns) 100 mls @ 100 mls/hr IVPB Q8@0400,1200, 2000 [facility] Last Admin: 05/26/17 11:02 Dose: 100 mls/hr Cefepime HCl 1 gm/ Sodium (Chloride) 100 mls @ 100 mls/hr IVPB Q12 [facility] Last Admin: 05/26/17 08:40 Dose: 100 mls/hr Ondansetron HCl (Zofran Inj) 4 mg IVP Q4 PRN PRN Reason: Nausea/Vomiting Pantoprazole Sodium (Protonix Ec Tab) 40 mg PO DAILY [facility] Last Admin: 05/26/17 08:40 Dose: 40 mg - Labs Labs: 05/25/17 05:30 05/25/17 05:30 PT 22.1 Seconds (9.8-13.1) H 05/20/17 04:30 INR 1.9 (0.9-1.2) H 05/20/17 04:30 APTT 42.8 Seconds (25.6-37.1) H 05/20/17 04:30 - Head Exam Head Exam: ATRAUMATIC - Eye Exam Eye Exam: Normal appearance - ENT Exam ENT Exam: Mucous Membranes Dry - Respiratory Exam Respiratory Exam: NORMAL BREATHING PATTERN - Cardiovascular Exam Cardiovascular Exam: +S1, +S2 - GI/Abdominal Exam GI & Abdominal Exam: Normal Bowel Sounds - Extremities Exam Extremities Exam: Normal Inspection Assessment and Plan (1) Thrombocytopenia Assessment & Plan: liver disease, splenic sequestration Status: Acute (2) Coagulopathy Assessment & Plan: liver disease Status: Acute (3) Anemia Assessment & Plan: normal iron, b12, folate stores Status: Acute
--- NOTE | 2017-05-26 14:46 | CP.PCM.PN ---
Subjective - Date & Time of Evaluation Date of Evaluation: 05/24/17 Time of Evaluation: 11:15 - Subjective Subjective: Has some abdominal discomfort but improved Objective - Vital Signs/Intake and Output Vital Signs (last 24 hours): Temp Pulse Resp BP Pulse Ox 98.3 F 73 18 126/62 95 05/26/17 08:09 05/26/17 08:09 05/26/17 08:09 05/26/17 08:09 05/26/17 08:09 - Medications Medications: Current Medications Acetaminophen (Tylenol 325mg Tab) 650 mg PO Q6 PRN PRN Reason: Fever >100.4 F Last Admin: 05/23/17 09:45 Dose: 650 mg Acetaminophen (Tylenol 325mg Tab) 650 mg PO Q6 PRN PRN Reason: pain (5-10) Last Admin: 05/24/17 20:04 Dose: 650 mg Metronidazole (Flagyl 500mg/100ml Ns) 100 mls @ 100 mls/hr IVPB Q8@0400,1200, 2000 [facility] Last Admin: 05/26/17 11:02 Dose: 100 mls/hr Cefepime HCl 1 gm/ Sodium (Chloride) 100 mls @ 100 mls/hr IVPB Q12 [facility] Last Admin: 05/26/17 08:40 Dose: 100 mls/hr Ondansetron HCl (Zofran Inj) 4 mg IVP Q4 PRN PRN Reason: Nausea/Vomiting Pantoprazole Sodium (Protonix Ec Tab) 40 mg PO DAILY [facility] Last Admin: 05/26/17 08:40 Dose: 40 mg - Labs Labs: 05/25/17 05:30 05/25/17 05:30 PT 22.1 Seconds (9.8-13.1) H 05/20/17 04:30 INR 1.9 (0.9-1.2) H 05/20/17 04:30 APTT 42.8 Seconds (25.6-37.1) H 05/20/17 04:30 - Head Exam Head Exam: ATRAUMATIC - Eye Exam Eye Exam: Normal appearance - ENT Exam ENT Exam: Mucous Membranes Dry - Respiratory Exam Respiratory Exam: NORMAL BREATHING PATTERN - Cardiovascular Exam Cardiovascular Exam: +S1, +S2 - GI/Abdominal Exam GI & Abdominal Exam: Normal Bowel Sounds - Extremities Exam Extremities Exam: Normal Inspection Assessment and Plan (1) Thrombocytopenia Assessment & Plan: liver disease, splenic sequestration Status: Acute (2) Coagulopathy Assessment & Plan: liver disease Status: Acute (3) Anemia Status: Acute
[2017-05-27] MEDS: metroNIDAZOLE 500mg/100ml NS 100 ML IVPB SCH ×3 (04:20→20:23)
[2017-05-27] MEDS: Cefepime 1 GM in Sodium Chloride 0.9% 100 ML IVPB SCH ×2 (09:18→20:37)
[2017-05-27] MEDS: Pantoprazole 40 mg EC Tab PO SCH (09:19)
--- NOTE | 2017-05-27 10:28 | PN ---
DATE: 05/27/2017 SUBJECTIVE: The patient is seen and examined. noted. Consult note has appreciated. Infectious disease followup and interventions noted and appreciated. The patient remains in regular medical floor. The patient feels much better. No chest pain. No shortness of breath. Abdominal pain is adequately controlled. The patient is able to tolerate food and moving bowels regularly. No chest pain or shortness of breath. PHYSICAL EXAMINATION: GENERAL: The patient is in no acute distress. VITAL SIGNS: Stable. HEART: S1 and S2 normal, regular. LUNGS: Good bilateral air exchange. ABDOMEN: Soft and nontender. EXTREMITIES: No edema. No calf swelling. No tenderness. No acute ischemia. CENTRAL NERVOUS SYSTEM: Essentially unchanged. DIAGNOSTIC DATA: Available diagnostic data reviewed. IMPRESSION AND PLAN: Overall, the patient is slowly improving. Plan as ordered. Arthur Ruiz MD
--- NOTE | 2017-05-27 11:51 | CP.PCM.PN ---
Subjective - Date & Time of Evaluation Date of Evaluation: 05/27/17 Time of Evaluation: 11:51 - Subjective Subjective: ID Note- Pt. seen and examined today. pt. in good spirits and states he feels better and denies any complaints today. denies any fever or chills, denies any n/v, denies any abd. pain. Objective - Vital Signs/Intake and Output Vital Signs (last 24 hours): Temp Pulse Resp BP Pulse Ox 98.4 F 52 L 18 163/77 H 98 05/27/17 08:31 05/27/17 08:31 05/27/17 08:31 05/27/17 08:31 05/27/17 08:31 - Medications Medications: Current Medications Acetaminophen (Tylenol 325mg Tab) 650 mg PO Q6 PRN PRN Reason: Fever >100.4 F Last Admin: 05/23/17 09:45 Dose: 650 mg Acetaminophen (Tylenol 325mg Tab) 650 mg PO Q6 PRN PRN Reason: pain (5-10) Last Admin: 05/24/17 20:04 Dose: 650 mg Metronidazole (Flagyl 500mg/100ml Ns) 100 mls @ 100 mls/hr IVPB Q8@0400,1200, 2000 [facility] Last Admin: 05/27/17 11:31 Dose: 100 mls/hr Cefepime HCl 1 gm/ Sodium (Chloride) 100 mls @ 100 mls/hr IVPB Q12 [facility]PLAC[facility] Last Admin: 05/27/17 09:18 Dose: 100 mls/hr Ondansetron HCl (Zofran Inj) 4 mg IVP Q4 PRN PRN Reason: Nausea/Vomiting Pantoprazole Sodium (Protonix Ec Tab) 40 mg PO DAILY [facility] Last Admin: 05/27/17 09:19 Dose: 40 mg - Labs Labs: - Additional Findings Additional findings: - Constitutional Appears: Non-toxic, No Acute Distress - Head Exam Head Exam: ATRAUMATIC - Eye Exam Eye Exam: EOMI, PERRL - ENT Exam ENT Exam: Normal Oropharynx - Respiratory Exam Respiratory Exam: Clear to Auscultation Bilateral, NORMAL BREATHING PATTERN - Cardiovascular Exam Cardiovascular Exam: RRR, +S1, +S2 - GI/Abdominal Exam GI & Abdominal Exam: much less Distended, Normal Bowel Sounds Additional comments: No tenderness + BS soft - Extremities Exam Extremities exam: Positive for: normal inspection - Neurological Exam Neurological exam: Alert, Oriented x 3 Laboratory Results - last 72 hr 05/25/17 05/25/17 05:30 05:30 WBC 3.2 L RBC 3.57 L Hgb 11.7 L Hct 33.4 L MCV 93.3 MCH 32.7 H MCHC 35.0 RDW 14.8 H Plt Count 38 L Sodium 138 Potassium 3.5 L Chloride 110 H Carbon Dioxide 22 Anion Gap 10 BUN 10 Creatinine 0.7 L Est GFR ( Amer) > 60 Est GFR (Non-Af Amer) > 60 Random Glucose 122 H Calcium 7.8 L Total Bilirubin 2.2 H AST 94 H ALT 68 Alkaline Phosphatase 162 H Total Protein 6.3 Albumin 2.6 L Globulin 3.7 Albumin/Globulin Ratio 0.7 L Microbiology 05/23/17 10:15 Blood Blood Culture - Preliminary NO GROWTH AFTER 4 DAYS 05/24/17 20:25 Blood-Venous Blood Culture - Preliminary NO GROWTH AFTER 48 HOURS 05/24/17 20:10 Blood-Venous Blood Culture - Preliminary NO GROWTH AFTER 48 HOURS 05/23/17 16:43 Urine,Clean Catch Urine Culture - Final No Growth (<1,000 CFU/ML) 05/22/17 01:30 Naris MRSA Culture (Admit) - Final MRSA NOT DETECTED 05/19/17 12:30 Blood-Venous Blood Culture - Final Escherichia Coli 05/19/17 12:30 Blood-Venous Gram Stain - Final 05/19/17 06:55 Nose MRSA Culture (Admit) - Final MRSA NOT DETECTED 05/19/17 15:00 Urine,Clean Catch Urine Culture - Final Escherichia Coli Assessment and Plan (1) Cholecystitis Status: Acute (2) Coagulopathy Status: Acute (3) Sepsis Status: Acute (4) Thrombocytopenia Status: Acute (5) UTI (urinary tract infection) Status: Acute (6) Bacteremia due to Escherichia coli Status: Acute - Assessment and Plan (Free Text) Assessment: A/P- 72 year old male admitted with abd pain, fever, rectal bleed found to have acute on chronic thrombocytopenia, liver cirrhosis, cholecystitis and e.coli UTI and bacteremia. thrombocytopenia most likely multifactorial secondary to both the cirrhosis and sepsis itself. e.coli bactermia secondary to the source E.coli UTI. e.coli is reported as pansensitive. CT of chest reported as moderate b/l pleural effusions. abd ct report noted as well. has remained afebrile slight leukopenia continues to be thrombocytopenic repeat blood cx - neg x 3 repeat urine cx- neg echo- no vegetations reported as per cardiology report. plan- advise to continue with current cefepime for treatment of both the e.coli bacteremia and UTI. today is day #5. pt. will require total of 21 days of IV antibiotics for the e.coli bacteremia. If pt. is ready to be d/c home from primary and surgical standpoint then he can get picc line and complete the rest of the IV abx at home with home nurse. pt. will need another 2 weeks of the IV abx . pt. to have once a week cbc and BMP done while on IV abx and perhaps oral probiotics to help avoid diarrhea and/or c.diff. all above d/w patient and his family who is at his bedside and they verbalize full understanding of this and they agree with this plan. Plan also d/w JIMBO siddiqi as well.
[2017-05-28] MEDS: metroNIDAZOLE 500mg/100ml NS 100 ML IVPB SCH ×3 (04:10→20:55)
[2017-05-28 07:52] LABS: HEMOGLOBIN 12.9 g/dL (12.0-18.0); MEAN CELL VOLUME 94.5 fl (80.0-94.0); MEAN CORPUSCULAR HEMOGLOBIN 33.3 pg (27.0-31.0); MEAN CORPUSCULAR HGB CONC 35.3 g/dL (33.0-37.0); RBC 3.88 Mil/uL (4.40-5.90); RED CELL DISTRIBUTION WIDTH 14.3 % (11.5-14.5); WHITE BLOOD COUNT 6.4 K/uL (4.8-10.8)
[2017-05-28 08:01] LABS: INR 1.5 (0.9-1.2); PROTHROMBIN TIME 17.2 Seconds (9.8-13.1)
[2017-05-28 08:06] LABS: ALBUMIN 3.1 g/dL (3.5-5.0)
[2017-05-28 08:09] LABS: ALB/GLOB RATIO 0.6 (1.0-2.1); ALT/SGPT 70 U/L (21-72); AST/SGOT 138 U/L (17-59); BLOOD UREA NITROGEN 10 mg/dl (9-20); CALCIUM 8.6 mg/dL (8.4-10.2)
[2017-05-28] MEDS: Pantoprazole 40 mg EC Tab PO SCH (08:39)
[2017-05-28 09:01] LABS: GFR AFRICAN-AMERICAN > 60; GFR NON-AFRICAN AMERICAN > 60
[2017-05-28] MEDS: Cefepime 1 GM in Sodium Chloride 0.9% 100 ML IVPB SCH ×2 (09:33→22:03)
--- NOTE | 2017-05-28 10:09 | CP.PCM.PN ---
Subjective - Date & Time of Evaluation Date of Evaluation: 05/26/17 Time of Evaluation: 10:00 - Subjective Subjective: Patient is doign well Has no abd pain Has no chest pain or SOB Stil on IV antibiotics Mccabe sno fever. Objective - Vital Signs/Intake and Output Vital Signs (last 24 hours): Temp Pulse Resp BP Pulse Ox 99.3 F 84 20 130/64 93 L 05/28/17 08:51 05/28/17 08:51 05/28/17 08:51 05/28/17 08:51 05/28/17 08:51 - Medications Medications: Current Medications Acetaminophen (Tylenol 325mg Tab) 650 mg PO Q6 PRN PRN Reason: Fever >100.4 F Last Admin: 05/28/17 08:37 Dose: 650 mg Acetaminophen (Tylenol 325mg Tab) 650 mg PO Q6 PRN PRN Reason: pain (5-10) Last Admin: 05/24/17 20:04 Dose: 650 mg Metronidazole (Flagyl 500mg/100ml Ns) 100 mls @ 100 mls/hr IVPB Q8@0400,1200, 2000 [facility] Last Admin: 05/28/17 04:10 Dose: 100 mls/hr Cefepime HCl 1 gm/ Sodium (Chloride) 100 mls @ 100 mls/hr IVPB Q12 [facility] Last Admin: 05/28/17 09:33 Dose: 100 mls/hr Ondansetron HCl (Zofran Inj) 4 mg IVP Q4 PRN PRN Reason: Nausea/Vomiting Pantoprazole Sodium (Protonix Ec Tab) 40 mg PO DAILY [facility] Last Admin: 05/28/17 08:39 Dose: 40 mg - Labs Labs: 05/28/17 06:50 05/28/17 06:50 PT 17.2 Seconds (9.8-13.1) H 05/28/17 06:50 INR 1.5 (0.9-1.2) H 05/28/17 06:50 APTT 42.8 Seconds (25.6-37.1) H 05/20/17 04:30 - Head Exam Head Exam: NORMAL INSPECTION - Eye Exam Eye Exam: Normal appearance - ENT Exam ENT Exam: Mucous Membranes Moist - Respiratory Exam Respiratory Exam: Clear to Ausculation Bilateral - Cardiovascular Exam Cardiovascular Exam: REGULAR RHYTHM - GI/Abdominal Exam GI & Abdominal Exam: Normal Bowel Sounds Assessment and Plan (1) Sepsis Status: Acute (2) Bacteremia due to Escherichia coli Status: Acute (3) UTI (urinary tract infection) Status: Acute - Assessment and Plan (Free Text) Plan: cont meds cont tx Cont iv antibiotics
--- NOTE | 2017-05-28 10:14 | CP.PCM.PN ---
<Desean Dean - Last Filed: 05/28/17 11:24> Subjective - Date & Time of Evaluation Date of Evaluation: 05/28/17 Time of Evaluation: 07:30 - Subjective Subjective: pt seen and examined at bedside. No acute events overnight. Afebrile. Reports feeling well overall. OOB/ambulating w/o difficulty. Tolerating PO intake w/o issue. Day 6 of of Abx therapy. Denies fever/chills, headaches, changes in vision, CP/SOB/Palpitations, N/V/D/C, urinary symptoms, numbness/tingling, leg pain. Objective - Vital Signs/Intake and Output Vital Signs (last 24 hours): Temp Pulse Resp BP Pulse Ox 99.3 F 84 20 130/64 93 L 05/28/17 08:51 05/28/17 08:51 05/28/17 08:51 05/28/17 08:51 05/28/17 08:51 - Medications Medications: Current Medications Acetaminophen (Tylenol 325mg Tab) 650 mg PO Q6 PRN PRN Reason: Fever >100.4 F Last Admin: 05/28/17 08:37 Dose: 650 mg Acetaminophen (Tylenol 325mg Tab) 650 mg PO Q6 PRN PRN Reason: pain (5-10) Last Admin: 05/24/17 20:04 Dose: 650 mg Metronidazole (Flagyl 500mg/100ml Ns) 100 mls @ 100 mls/hr IVPB Q8@0400,1200, 2000 [facility] Last Admin: 05/28/17 04:10 Dose: 100 mls/hr Cefepime HCl 1 gm/ Sodium (Chloride) 100 mls @ 100 mls/hr IVPB Q12 [facility] Last Admin: 05/28/17 09:33 Dose: 100 mls/hr Ondansetron HCl (Zofran Inj) 4 mg IVP Q4 PRN PRN Reason: Nausea/Vomiting Pantoprazole Sodium (Protonix Ec Tab) 40 mg PO DAILY [facility] Last Admin: 05/28/17 08:39 Dose: 40 mg - Labs Labs: 05/28/17 06:50 05/28/17 06:50 PT 17.2 Seconds (9.8-13.1) H 05/28/17 06:50 INR 1.5 (0.9-1.2) H 05/28/17 06:50 APTT 42.8 Seconds (25.6-37.1) H 05/20/17 04:30 - Constitutional Appears: Non-toxic, No Acute Distress - Head Exam Head Exam: ATRAUMATIC, NORMOCEPHALIC - Eye Exam Eye Exam: EOMI. absent: Scleral icterus Pupil Exam: PERRL - ENT Exam ENT Exam: Mucous Membranes Moist - Respiratory Exam Respiratory Exam: Clear to Ausculation Bilateral, NORMAL BREATHING PATTERN. absent: Rales, Rhonchi, Wheezes - Cardiovascular Exam Cardiovascular Exam: REGULAR RHYTHM, RRR, +S1, +S2. absent: Tachycardia, Gallop , JVD, Rubs, Murmur - GI/Abdominal Exam GI & Abdominal Exam: Soft, Normal Bowel Sounds. absent: Distended, Firm, Guarding, Rigid, Tenderness, Rebound - Extremities Exam Extremities Exam: Normal Inspection. absent: Calf Tenderness, Tenderness - Neurological Exam Neurological Exam: Alert, Awake, CN II-XII Intact, Oriented x3 - Psychiatric Exam Psychiatric exam: Normal Affect, Normal Mood Assessment and Plan (1) Severe sepsis Assessment & Plan: day 6 of Abx therapy Leukocytosis resolved blood cultures negative c/w current management consider placement for completion of IV Abx Status: Resolved (2) UTI (urinary tract infection) Assessment & Plan: asymptomatic c/w current management Status: Resolved (3) Cholecystitis Assessment & Plan: no surgical intervention c/w conservative management as per Gen surg team Status: Acute (4) Thrombocytopenia Assessment & Plan: improving, platelets 66 today followed by hem/onc Status: Acute <Ruiz,Arthur K - Last Filed: 05/29/17 14:53> Objective - Vital Signs/Intake and Output Vital Signs (last 24 hours): Temp Pulse Resp BP Pulse Ox 98.2 F 77 20 122/64 94 L 05/29/17 07:33 05/29/17 07:33 05/29/17 07:33 05/29/17 07:33 05/29/17 07:33 - Medications Medications: Current Medications Acetaminophen (Tylenol 325mg Tab) 650 mg PO Q6 PRN PRN Reason: Fever >100.4 F Last Admin: 05/28/17 08:37 Dose: 650 mg Acetaminophen (Tylenol 325mg Tab) 650 mg PO Q6 PRN PRN Reason: pain (5-10) Last Admin: 05/24/17 20:04 Dose: 650 mg Metronidazole (Flagyl 500mg/100ml Ns) 100 mls @ 100 mls/hr IVPB Q8@0400,1200, 2000 [facility] Last Admin: 05/29/17 12:28 Dose: 100 mls/hr Cefepime HCl 1 gm/ Sodium (Chloride) 100 mls @ 100 mls/hr IVPB Q12 [facility] Last Admin: 05/29/17 08:58 Dose: 100 mls/hr Ondansetron HCl (Zofran Inj) 4 mg IVP Q4 PRN PRN Reason: Nausea/Vomiting Pantoprazole Sodium (Protonix Ec Tab) 40 mg PO DAILY [facility] Last Admin: 05/29/17 08:59 Dose: 40 mg - Labs Labs: 05/29/17 07:29 05/29/17 07:29 PT 17.2 Seconds (9.8-13.1) H 05/28/17 06:50 INR 1.5 (0.9-1.2) H 05/28/17 06:50 APTT 42.8 Seconds (25.6-37.1) H 05/20/17 04:30 Assessment and Plan - Assessment and Plan (Free Text) Assessment: Patient was personally seen and examined by me in rounds with residents. Available labs and diagnostic data reviewed. Case, Patient's condition and management plan discussed with residents in rounds. Agree with resident's documentation. Plan: As ordered. Arthur Ruiz MD
[2017-05-28] MEDS ORDERED: Lidocaine 1% Inj (20ml) ONE (13:43)
--- NOTE | 2017-05-28 13:52 | PCM.SURG1 ---
Surgeon's Initial Post Op Note - Surgeon's Notes Surgeon: Bobby Todd MD Faith Doctor: None Type of Anesthesia: Local Pre-Operative Diagnosis: Thrombocytopenia Operative Findings: US showed a patent right basilic vein. Post-Operative Diagnosis: Thrombocytopenia Operation Performed: Single lumen picc placement right basilic vein, 37 cm. Tip in the SVC. Specimen/Specimens Removed: None Estimated Blood Loss: EBL {In ML}: 2 Blood Products Given: N/A Drains Used: No Drains Post-Op Condition: Fair Date of Surgery/Procedure: 05/28/17 Time of Surgery/Procedure: 13:55
--- NOTE | 2017-05-28 19:27 | CP.PCM.PN ---
Subjective - Date & Time of Evaluation Date of Evaluation: 05/28/17 Time of Evaluation: 15:30 - Subjective Subjective: Feeling better Objective - Vital Signs/Intake and Output Vital Signs (last 24 hours): Temp Pulse Resp BP Pulse Ox 98.1 F 72 17 125/61 94 L 05/28/17 16:06 05/28/17 16:06 05/28/17 16:06 05/28/17 16:06 05/28/17 16:06 - Medications Medications: Current Medications Acetaminophen (Tylenol 325mg Tab) 650 mg PO Q6 PRN PRN Reason: Fever >100.4 F Last Admin: 05/28/17 08:37 Dose: 650 mg Acetaminophen (Tylenol 325mg Tab) 650 mg PO Q6 PRN PRN Reason: pain (5-10) Last Admin: 05/24/17 20:04 Dose: 650 mg Metronidazole (Flagyl 500mg/100ml Ns) 100 mls @ 100 mls/hr IVPB Q8@0400,1200, 2000 [facility] Last Admin: 05/28/17 11:05 Dose: 100 mls/hr Cefepime HCl 1 gm/ Sodium (Chloride) 100 mls @ 100 mls/hr IVPB Q12 [facility] Last Admin: 05/28/17 09:33 Dose: 100 mls/hr Ondansetron HCl (Zofran Inj) 4 mg IVP Q4 PRN PRN Reason: Nausea/Vomiting Pantoprazole Sodium (Protonix Ec Tab) 40 mg PO DAILY [facility] Last Admin: 05/28/17 08:39 Dose: 40 mg - Labs Labs: 05/28/17 06:50 05/28/17 06:50 PT 17.2 Seconds (9.8-13.1) H 05/28/17 06:50 INR 1.5 (0.9-1.2) H 05/28/17 06:50 APTT 42.8 Seconds (25.6-37.1) H 05/20/17 04:30 - Head Exam Head Exam: ATRAUMATIC - Eye Exam Eye Exam: Normal appearance - ENT Exam ENT Exam: Mucous Membranes Dry - Respiratory Exam Respiratory Exam: NORMAL BREATHING PATTERN - Cardiovascular Exam Cardiovascular Exam: +S1, +S2 - GI/Abdominal Exam GI & Abdominal Exam: Normal Bowel Sounds - Extremities Exam Extremities Exam: Normal Inspection Assessment and Plan (1) Thrombocytopenia Assessment & Plan: liver disease, splenic sequestration may be exarbated by sepsis Status: Acute (2) Coagulopathy Assessment & Plan: liver disease Status: Acute (3) Anemia Assessment & Plan: chronic disease H/H stable Status: Acute
[2017-05-29] MEDS ORDERED: metroNIDAZOLE 500mg/100ml NS IVPB ONE (04:00)
[2017-05-29 07:34] VITALS: BP 122/64; PULSE 77; RESP 20; TEMP 98.2; O2SAT 94
[2017-05-29 07:53] LABS: BASO % 0.3 % (0.0-2.0); EOS % 0.8 % (0.0-4.0); LYMPH # 0.7 K/uL (1.0-4.3); LYMPH % 14.9 % (20.0-40.0); MEAN CELL VOLUME 95.2 fl (80.0-94.0); MEAN CORPUSCULAR HGB CONC 34.6 g/dL (33.0-37.0); MEAN PLATELET VOLUME 10.4 fl (7.2-11.7); MONO # 0.4 K/uL (0.0-0.8); MONO % 8.4 % (0.0-10.0); NEUT # 3.4 K/uL (1.8-7.0); NEUT % 75.6 % (50.0-75.0); NRBC % 0.1 % (0.0-0.0); RBC 3.63 Mil/uL (4.40-5.90); RED CELL DISTRIBUTION WIDTH 14.5 % (11.5-14.5); WHITE BLOOD COUNT 4.5 K/uL (4.8-10.8)
[2017-05-29 08:16] LABS: ALB/GLOB RATIO 0.7 (1.0-2.1); AST/SGOT 126 U/L (17-59); BLOOD UREA NITROGEN 11 mg/dl (9-20); GFR AFRICAN-AMERICAN > 60; GFR NON-AFRICAN AMERICAN > 60
[2017-05-29 08:17] LABS: ALT/SGPT 68 U/L (21-72); CALCIUM 8.4 mg/dL (8.4-10.2)
[2017-05-29] MEDS: metroNIDAZOLE 500mg/100ml NS 100 ML IVPB SCH ×2 (08:57→12:28)
[2017-05-29] MEDS: Cefepime 1 GM in Sodium Chloride 0.9% 100 ML IVPB SCH (08:58)
[2017-05-29] MEDS: Pantoprazole 40 mg EC Tab PO SCH (08:59)
== END 2017-05-29 16:34 | disposition home health service (06) | DRG 872 ==
LOC: H.ER 11:27 → H.ERHOLD 15:22 → H.ICU/CCU 19:55 → H.MEDSURG1 05-22 16:32
PROVIDERS: ADMIT Internal Medicine; ATTEND Internal Medicine
PROC: 30233R1 Transfusion of Nonautologous Platelets into Peripheral Vein, Percutaneous Approach (ICD-10-PCS; 2017-05-19)
PROC: 6A550Z2 Pheresis of Platelets, Single (ICD-10-PCS; 2017-05-19)
PROC: 30233K1 Transfusion of Nonautologous Frozen Plasma into Peripheral Vein, Percutaneous Approach (ICD-10-PCS; 2017-05-19)
PROC: 3E0234Z Introduction of Serum, Toxoid and Vaccine into Muscle, Percutaneous Approach (ICD-10-PCS; 2017-05-20)
PROC: 02HV33Z Insertion of Infusion Device into Superior Vena Cava, Percutaneous Approach (ICD-10-PCS; principal; 2017-05-27)
PROC: B548ZZA Ultrasonography of Superior Vena Cava, Guidance (ICD-10-PCS; 2017-05-27)
PROC: 3E04329 Introduction of Other Anti-infective into Central Vein, Percutaneous Approach (ICD-10-PCS; 2017-05-27)
DX: A41.51 Sepsis due to Escherichia coli [E. coli] (principal); D68.4 Acquired coagulation factor deficiency; K80.00 Calculus of gallbladder with acute cholecystitis without obstruction; J90 Pleural effusion, not elsewhere classified; K76.6 Portal hypertension; R18.8 Other ascites; N39.0 Urinary tract infection, site not specified; J98.11 Atelectasis; D69.59 Other secondary thrombocytopenia; R65.20 Severe sepsis without septic shock; B96.20 Unspecified Escherichia coli [E. coli] as the cause of diseases classified elsewhere; D73.2 Chronic congestive splenomegaly; K74.60 Unspecified cirrhosis of liver; D63.8 Anemia in other chronic diseases classified elsewhere; I10 Essential (primary) hypertension; K21.9 Gastro-esophageal reflux disease without esophagitis; K57.90 Diverticulosis of intestine, part unspecified, without perforation or abscess without bleeding; I45.10 Unspecified right bundle-branch block; N40.0 Benign prostatic hyperplasia without lower urinary tract symptoms; Z23 Encounter for immunization